=== PATIENT | female | born 1955 | race Caucasian/White ===

== ENCOUNTER 2021-08-18 07:31 | Outpatient (REF) | payer OTHER, SELFPAY ==
[2021-08-18 11:57] LABS: MANUAL DIFF FLAG NO
[2021-08-18 12:06] LABS: Basophils Percent Auto 0.6 % (0-2); Eosinophils Absolute Auto 0.5 X10*3/uL (0.0-0.4); Eosinophils Percent Auto 7.7 % (0-4); Hematocrit 45.6 % (37.0-47.0); Hemoglobin 14.6 g/dl (12.0-16.0); Imm Gran Abs Auto 0.01 X10*3/uL (0.00-0.03); Imm Gran Pct Auto 0.2 % (0.0-0.4); Lymphocytes Absolute Auto 2.4 X10*3/uL (1.2-4.9); Lymphocytes Percent Auto 35.6 % (20-40); Mean Corpuscular Hemoglobin 27.7 pg (27.0-33.0); Mean Corpuscular Volume 86.4 fL (80.0-98.0); Mean Platelet Volume 9.5 fL (9.4-12.3); Monocytes Absolute Auto 0.5 X10*3/uL (0.1-1.2); Monocytes Percent Auto 7.9 % (2-11); Neutrophils Absolute Auto 3.2 x10*3/uL (2.0-8.3); Platelet Count 325 X10*3/uL (160-400); Red Blood Count 5.28 X10*6/uL (4.20-5.50); Red Cell Distribution Width 12.7 % (11.0-16.0); White Blood Count 6.6 X10*3/uL (4.8-10.8)
[2021-08-18 12:07] LABS: Appearance Urine CLEAR; Color Urine YELLOW; Glucose Urine UA NEG (NEG); Leukocyte Esterase Urine NEG (NEG); Nitrite Urine NEG (NEG); Urine Blood NEG (NEG); Urine Ketones NEG (NEG); Urine Protein NEG (NEG-TRACE)
[2021-08-18 12:14] LABS: Alanine Aminotransferase 16 U/L (0-31); Albumin Level 3.8 g/dL (3.5-5.0); Alkaline Phosphatase 89 U/L (39-117); Anion Gap 12 (12-20); Aspartate Amino Transferase 20 U/L (5-31); Bilirubin Total 0.2 mg/dL (0.0-1.0); Blood Urea Nitrogen 21 mg/dL (9-16); Calcium 9.5 mg/dL (8.4-10.2); Carbon Dioxide 31 mmol/L (22-29); Chloride 104 mmol/L (96-108); Cholesterol 221 mg/dL; Estimated Glomerular Filt Rate > 60; Glucose Fasting 90 mg/dL (60-99); HDL Cholesterol 52 mg/dL; LDL Cholesterol Calculated 143 mg/dl; Potassium 5.5 mmol/L (3.3-5.1); Sodium 141 mmol/L (135-145); Triglycerides 131 mg/dL
[2021-08-18 12:36] LABS: TSH reflex Free T4 2.49 uIU/mL (0.32-4.0); Vitamin D 25-OH Total 63.6 ng/mL (>30)
== END 2021-08-18 07:32 | disposition home or self-care (01) ==
LOC: HO.HMGCLDS 07:31
PROVIDERS: PCP Nurse Practitioner Family; Visit Provider Nurse Practitioner Family
DX: Z00.00 Encounter for general adult medical examination without abnormal findings (principal); M85.80 Other specified disorders of bone density and structure, unspecified site; E87.5 Hyperkalemia
CPT/HCPCS: 36415; 80053; 80061; 81003; 82306; 84443; 85025

== ENCOUNTER 2021-09-22 07:27 | Outpatient (REF) | payer OTHER, SELFPAY ==
[2021-09-22 12:10] LABS: Anion Gap 11 (12-20); Carbon Dioxide 31 mmol/L (22-29); Chloride 104 mmol/L (96-108); Cholesterol 239 mg/dL; HDL Cholesterol 50 mg/dL; LDL Cholesterol Calculated 158 mg/dl; Potassium 5.5 mmol/L (3.3-5.1); Sodium 140 mmol/L (135-145); Triglycerides 159 mg/dL
== END 2021-09-22 07:28 | disposition home or self-care (01) ==
LOC: HO.HMGCLDS 07:27
PROVIDERS: Visit Provider Nurse Practitioner Family
DX: E78.5 Hyperlipidemia, unspecified (principal); E87.5 Hyperkalemia
CPT/HCPCS: 36415; 80051; 80061

== ENCOUNTER 2021-11-17 07:07 | Outpatient (REF) | payer OTHER, SELFPAY ==
[2021-11-17 11:30] LABS: Potassium 4.1 mmol/L (3.3-5.1)
== END 2021-11-17 07:08 | disposition home or self-care (01) ==
LOC: HO.HMGCLDS 07:07
PROVIDERS: PCP Nurse Practitioner Family; Visit Provider Internal Medicine
DX: E87.5 Hyperkalemia (principal)
CPT/HCPCS: 36415; 84132

== ENCOUNTER 2022-01-19 06:30 | Outpatient (REF) | payer OTHER, SELFPAY ==
[2022-01-19 12:46] LABS: MANUAL DIFF FLAG NO
[2022-01-19 12:56] LABS: Basophils Absolute Auto 0.1 X10*3/uL (0.0-0.2); Basophils Percent Auto 0.8 % (0-2); Eosinophils Absolute Auto 0.4 X10*3/uL (0.0-0.4); Eosinophils Percent Auto 6.8 % (0-4); Hemoglobin 13.7 g/dl (12.0-16.0); Imm Gran Abs Auto 0.01 X10*3/uL (0.00-0.03); Imm Gran Pct Auto 0.2 % (0.0-0.4); Lymphocytes Absolute Auto 2.4 X10*3/uL (1.2-4.9); Lymphocytes Percent Auto 38.4 % (20-40); Mean Corpuscular HGB Conc 31.1 g/dl (31.0-35.0); Mean Corpuscular Hemoglobin 26.6 pg (27.0-33.0); Mean Corpuscular Volume 85.3 fL (80.0-98.0); Mean Platelet Volume 9.8 fL (9.4-12.3); Monocytes Absolute Auto 0.5 X10*3/uL (0.1-1.2); Neutrophils Absolute Auto 2.9 x10*3/uL (2.0-8.3); Neutrophils Percent Auto 45.8 % (45-73); Platelet Count 288 X10*3/uL (160-400); Red Blood Count 5.16 X10*6/uL (4.20-5.50); Red Cell Distribution Width 13.2 % (11.0-16.0); White Blood Count 6.4 X10*3/uL (4.8-10.8)
[2022-01-19 13:09] LABS: Alanine Aminotransferase 17 U/L (0-31); Alkaline Phosphatase 72 U/L (39-117); Anion Gap 10 (12-20); Aspartate Amino Transferase 23 U/L (5-31); Bilirubin Total 0.7 mg/dL (0.0-1.0); Blood Urea Nitrogen 23 mg/dL (9-16); Calcium 9.3 mg/dL (8.4-10.2); Carbon Dioxide 28 mmol/L (22-29); Chloride 105 mmol/L (96-108); Cholesterol 226 mg/dL; Estimated Glomerular Filt Rate 56; Glucose Fasting 91 mg/dL (60-99); HDL Cholesterol 44 mg/dL; LDL Cholesterol Calculated 153 mg/dl; Potassium 4.1 mmol/L (3.3-5.1); Sodium 139 mmol/L (135-145); Triglycerides 147 mg/dL
[2022-01-19 13:28] LABS: Appearance Urine CLEAR; Color Urine YELLOW; Glucose Urine UA NEG (NEG); Leukocyte Esterase Urine NEG (NEG); Nitrite Urine NEG (NEG); PH 6.5 (5.0-8.0); Urine Blood NEG (NEG); Urine Ketones NEG (NEG); Urine Protein NEG (NEG-TRACE)
[2022-01-19 13:33] LABS: TSH reflex Free T4 1.97 uIU/mL (0.32-4.0)
[2022-01-19 13:51] LABS: Vitamin B12 876 pg/mL (200-900)
== END 2022-01-19 06:31 | disposition home or self-care (01) ==
LOC: HO.HMGCLDS 06:30
PROVIDERS: Visit Provider Nurse Practitioner Family
DX: E78.5 Hyperlipidemia, unspecified (principal); E53.8 Deficiency of other specified B group vitamins
CPT/HCPCS: 36415; 80053; 80061; 81003; 82607; 82746; 84443; 85025

== ENCOUNTER 2023-01-20 06:15 | Outpatient (REF) | payer MEDICARE, OTHER, SELFPAY ==
[2023-01-20 12:03] LABS: Alanine Aminotransferase 31 U/L (0-31); Albumin Level 3.8 g/dL (3.5-5.0); Alkaline Phosphatase 76 U/L (39-117); Anion Gap 10 (12-20); Aspartate Amino Transferase 25 U/L (5-31); Bilirubin Total 0.5 mg/dL (0.0-1.0); Blood Urea Nitrogen 19 mg/dL (9-16); Calcium 9.4 mg/dL (8.4-10.2); Carbon Dioxide 29 mmol/L (22-29); Chloride 107 mmol/L (96-108); Cholesterol 169 mg/dL; Estimated Glomerular Filt Rate > 60; Glucose Random 90 mg/dL (60-115); HDL Cholesterol 48 mg/dL; LDL Cholesterol Calculated 96 mg/dl; Potassium 3.8 mmol/L (3.3-5.1); Sodium 142 mmol/L (135-145); Total Protein 7.2 g/dL (6.5-8.0); Triglycerides 129 mg/dL
== END 2023-01-20 06:16 | disposition home or self-care (01) ==
LOC: HO.HMGCLDS 06:15
PROVIDERS: PCP Nurse Practitioner Family; Visit Provider Nurse Practitioner Family
DX: E78.5 Hyperlipidemia, unspecified (principal)
CPT/HCPCS: 36415; 80053; 80061

== ENCOUNTER 2023-03-15 09:26 | Outpatient (AMB) | payer MEDICARE, OTHER, SELFPAY ==
--- NOTE | 2023-03-15 09:35 | MHC.PC.OV ---
Vital Signs 03/15/23 09:36 Height 5 ft 5 in Weight 149 lb 4 oz BMI 24.8 BP 110/68 Blood Pressure Location Rt brachial Position Sitting Pulse 81 Pulse Source Pulse Oximeter Pulse Oximetry (%) 97 Oxygen Delivery Method Room Air Intake Visit Reasons: 6 month f/u Allergies Sulfa (Sulfonamide Antibiotics) Allergy (Unknown, Verified 03/15/23 09:37) high fevers, rash Medication List - Last Reconciled 03/15/23 by NAREN Westbrook atorvastatin 10 mg PO DAILY cholecalciferol (vitamin D3) 125 mcg PO DAILY epcaniiy-hqxoge-czxvberv acid 500 mg-800 mcg- 50 mg (Collagen 1500 Plus C) caps PO cyanocobalamin (vitamin B-12) 1,000 mcg PO DAILY estradiol 0.01%(0.1mg/gram) 1 g vaginal ijragwmb-kte-qphe-FA-vit K-lut 8 mg iron-400 mcg-50 mcg (Centrum Silver Women) 1 tab PO DAILY psyllium husk (Metamucil) 1 tbsp PO BID Tobacco use date assessed: 03/15/23 Fall risk assessment: No Falls in past year Last assessed Fall Risk: 03/15/23 Dental Screening Dental Screen Date: 03/15/23 Did you have a dental visit in the last 12 months?: Yes Did you have a dental problem in the last 6 months where you did not have access to dental care?: No Was dental information given to patient?: Patient has dentist HPI 6 month f/u HPI Details Dyslipidemia: On atorvastatin 10mg. Cholesterol is looking much better. Will order labs. Hx of vitamin B12 deficiency, will order labs. Hx of osteopenia, will order bone density and check vitamin D. Denies chest pain, shortness of breath, and dizziness. Pt will call about her mammogram and colon screen. [facility], [facility] Surgical History History of partial hysterectomy Social History Housing: House Patient Tobacco Use Status: Former Tobacco user Years Smoked: quit 38 years e-Cigarette/Vaping Use: Never Used Second Hand Smoke Exposure: No service: No Current occupational status: retired Cognitive needs: No Hearing needs: No Vision needs: No Questionnaire Thrive Questionnaire Date Thrive assessed: 08/11/21 NEL-7 AMB Questionnaire NEL-7 Date NEL - 7 assessed: 08/11/21 Source: Developed by Drs. Musa Javed, Amalia Vaughan, Dipak Richey and colleagues, with an educational yudith from [employer]. Review of Systems Const Reports as per HPI Physical exam (Primary Care) Vital Signs: Last Vital Signs Pulse 81 03/15/23 09:36 BP 110/68 03/15/23 09:36 Pulse Ox 97 03/15/23 09:36 Oxygen Delivery Method Room Air 03/15/23 09:36 BMI result Body Mass Index 24.8 Tobacco/Smoking Status: Tobacco use Status Tobacco use date assessed 03/15/23 03/15/23 09:41 Patient Tobacco Use Status Former Tobacco user 03/15/23 09:35 e-Cigarette/Vaping Use Never Used 03/15/23 09:35 Thrive Assessment: Date of Thrive Assessment Date Thrive assessed 08/11/21 03/15/23 09:35 Const General: cooperative Orientation/consciousness: patient oriented x3 Resp Effort & Inspection: normal respiratory effort Auscultation: clear to auscultation bilaterally Cardio Rate: regular rate Rhythm: regular rhythm Heart sounds: S1 normal heart sound present and S2 normal heart sound present Neuro General: patient oriented x3 Psych Appearance: grossly normal Mental Status: mental status grossly normal Speech and movement: Normal speech and movement present Affect: normal affect Attitude: cooperative Thought process: Normal thought process present Thought content: Normal thought content present Insight: Good insight present (Psych) Judgement: Good judgement present (Psych) Assessment and Plan Assessment & Plan (1) Osteopenia: Code(s): M85.80 - Other specified disorders of bone density and structure, unspecified site Plan: Bone density ordered (2) Dyslipidemia: Code(s): E78.5 - Hyperlipidemia, unspecified Plan: Labs ordered (3) B12 deficiency: Code(s): E53.8 - Deficiency of other specified B group vitamins Plan: Labs ordered Plan The patient agreed to the use of a manager medical affairs for this encounter. Scribed for NAREN Sharp by Radha Martino manager medical affairs, on 03/15/2023 at 09:50 EST. Orders: Orders XR DEXA axial skeleton Today M85.80 - Other specified disorders of bone density and structure, unspecified site Comprehensive Epworth. Panel Fast Today E78.5 - Hyperlipidemia, unspecified Lipid Panel Today E78.5 - Hyperlipidemia, unspecified TSH reflex Free T4 Today E78.5 - Hyperlipidemia, unspecified Complete Blood Count Auto Diff Today E78.5 - Hyperlipidemia, unspecified UA CC w/rflx Micro + Cult Today E78.5 - Hyperlipidemia, unspecified Vitamin B12 and Folate Today E53.8 - Deficiency of other specified B group vitamins Vitamin D 25-OH Total Today M85.80 - Other specified disorders of bone density and structure, unspecified site Coding Level of Care Code Est Pt Level 3 (57716) Diagnoses Osteopenia M85.80 Dyslipidemia E78.5 B12 deficiency E53.8
[2023-03-15 09:36] VITALS: BP 110/68; PULSE 81; O2SAT 97; BMI 24.8
== END 2023-03-15 09:55 | disposition home or self-care (01) ==
PROVIDERS: Visit Provider Nurse Practitioner Family
DX: M85.80 Other specified disorders of bone density and structure, unspecified site (principal); E78.5 Hyperlipidemia, unspecified; E53.8 Deficiency of other specified B group vitamins
CPT/HCPCS: 99213

== ENCOUNTER 2023-03-26 09:06 | Outpatient (REF) | payer MEDICARE, OTHER, SELFPAY ==
--- NOTE | ~2023-03-26 | MM_ITS ---
EXAMINATION: BONE DENSITOMETRY CLINICAL INDICATION: Osteopenia. COMPARISON: This is the patient's baseline examination. TECHNIQUE: Using a [employer] DXA System (software version: 13.1) manufactured by [employer], dual-energy x-ray absorptiometry was performed of the lumbar spine and left hip. The images are of good technical quality. Summary results are attached. FINDINGS: LEFT FEMUR, NECK: BMD 0.752 g/cm2, Z-score -0.6, T-score -2.1, osteopenia. LEFT FEMUR, TOTAL: BMD 0.766 g/cm2, Z-score -0.8, T-score -1.9, osteopenia. AP SPINE L1-L4: BMD 0.869 g/cm2, Z-score -1.1, T-score -2.6, osteoporosis. IDENTIFIED RISK FACTORS: Menopause, hysterectomy. HISTORY OF FRACTURE: None listed. MEDICATIONS: Calcium or multivitamin. Vitamin D. MM/XR DEXA axial skeleton IMPRESSION: 1. DIAGNOSIS: Osteoporosis based on the lowest T-score value of -2.6 in the lumbar spine applying World Health Organization criteria. 2. 10-YEAR FRACTURE RISK PREDICTION, FRAX: According to the guidelines, FRAX calculation should only be performed on patients in the osteopenia bone density category. Therefore, FRAX was not performed on this patient. 3. Treatment Recommendations: NOF guidelines recommend consideration for treatment in postmenopausal women and men age 50 and older presenting with the following: -A hip or vertebral (clinical or morphometric) fracture. -T-score less than or equal to -2.5 at the femoral neck or spine after appropriate evaluation to exclude secondary causes. -Low bone mass at the hip or spine and a 10-year fracture probability by FRAX of greater than or equal to 3% for hip fracture or greater than or equal to 20% for major osteoporotic fracture based on the [place] adapted WHO algorithm. 4. Other Recommendations: All treatment decisions require clinical judgment and consideration of individual patient factors, including patient preferences, comorbidities, previous drug use, risk factors not captured in the FRAX model (e.g. frailty, falls, vitamin D deficiency, increased bone turnover, interval significant decline in bone density) and possible under or overestimation of fracture risk by FRAX. Additional medical evaluation for secondary cause of low bone mineral density may be appropriate. FUTURE SCAN RECOMMENDATION: People with diagnosed cases of osteoporosis or at high risk for fracture should have regular bone mineral density tests. For patients eligible for Medicare, routine testing is allowed once every 2 years. The testing frequency can be increased to one year for patients who have rapidly progressing disease, those who are receiving or discontinuing medical therapy to restore bone mass, or have additional risk factors.
== END 2023-03-26 09:07 | disposition home or self-care (01) ==
LOC: HO.MAMMO 09:06
PROVIDERS: PCP Nurse Practitioner Family; Visit Provider Nurse Practitioner Family
DX: Z13.820 Encounter for screening for osteoporosis (principal); Z78.0 Asymptomatic menopausal state; M85.80 Other specified disorders of bone density and structure, unspecified site
CPT/HCPCS: 77080

== ENCOUNTER → 2023-03-26 09:15 | Outpatient (BNV) | payer MEDICARE, OTHER, SELFPAY | PROVIDERS: PCP Nurse Practitioner Family; Visit Provider Radiology Diagnostic Radiology | DX: M81.0 Age-related osteoporosis without current pathological fracture (principal); M85.89 Other specified disorders of bone density and structure, multiple sites | CPT/HCPCS: 77080 ==

== ENCOUNTER 2023-09-11 06:43 | Outpatient (REF) | payer MEDICARE, OTHER, SELFPAY ==
[2023-09-11 11:35] LABS: MANUAL DIFF FLAG NO
[2023-09-11 11:39] LABS: Basophils Percent Auto 0.7 % (0-2); Eosinophils Absolute Auto 0.4 X10*3/uL (0.0-0.4); Eosinophils Percent Auto 6.4 % (0-4); Hematocrit 45.5 % (37.0-47.0); Hemoglobin 14.8 g/dl (12.0-16.0); Imm Gran Abs Auto 0.02 X10*3/uL (0.00-0.03); Imm Gran Pct Auto 0.4 % (0.0-0.4); Lymphocytes Absolute Auto 1.8 X10*3/uL (1.2-4.9); Lymphocytes Percent Auto 31.1 % (20-40); Mean Corpuscular HGB Conc 32.5 g/dl (31.0-35.0); Mean Corpuscular Hemoglobin 26.6 pg (27.0-33.0); Mean Corpuscular Volume 81.7 fL (80.0-98.0); Mean Platelet Volume 9.6 fL (9.4-12.3); Monocytes Absolute Auto 0.5 X10*3/uL (0.1-1.2); Monocytes Percent Auto 8.7 % (2-11); Neutrophils Percent Auto 52.7 % (45-73); Platelet Count 324 X10*3/uL (160-400); Red Blood Count 5.57 X10*6/uL (4.20-5.50); Red Cell Distribution Width 12.9 % (11.0-16.0); White Blood Count 5.6 X10*3/uL (4.8-10.8)
[2023-09-11 12:03] LABS: Appearance Urine Clear; Color Urine Yellow; Glucose Urine UA Negative (Negative); Leukocyte Esterase Urine Negative (Negative); Nitrite Urine Negative (Negative); PH 7.5 (5.0-9.0); Urine Blood Negative (Negative); Urine Ketones Negative (Negative); Urine Protein Negative (Neg-Trace)
[2023-09-11 12:15] LABS: Alanine Aminotransferase 22 U/L (0-31); Albumin Level 3.9 g/dL (3.5-5.0); Alkaline Phosphatase 80 U/L (39-117); Anion Gap 12 (12-20); Aspartate Amino Transferase 22 U/L (5-31); Bilirubin Total 0.4 mg/dL (0.0-1.0); Blood Urea Nitrogen 26 mg/dL (9-16); Calcium 9.7 mg/dL (8.4-10.2); Carbon Dioxide 28 mmol/L (22-29); Chloride 104 mmol/L (96-108); Cholesterol 159 mg/dL (<200); Estimated Glomerular Filt Rate > 60; Glucose Fasting 87 mg/dL (60-99); HDL Cholesterol 44 mg/dL (>40); LDL Cholesterol Calculated 95 mg/dL (<100); Sodium 139 mmol/L (135-145); Total Protein 7.4 g/dL (6.5-8.0); Triglycerides 101 mg/dL (<150)
[2023-09-11 12:31] LABS: TSH reflex Free T4 1.74 uIU/mL (0.32-4.0); Vitamin D 25-OH Total 61.4 ng/mL (>30)
[2023-09-11 12:38] LABS: Folate 15.1 ng/mL (> or = 4.0); Vitamin B12 1408 pg/mL (200-900)
== END 2023-09-11 06:44 | disposition home or self-care (01) ==
LOC: HO.HMGCLDS 06:43
PROVIDERS: PCP Nurse Practitioner Family; Visit Provider Nurse Practitioner Family
DX: E78.5 Hyperlipidemia, unspecified (principal); M85.80 Other specified disorders of bone density and structure, unspecified site; E53.8 Deficiency of other specified B group vitamins
CPT/HCPCS: 36415; 80053; 80061; 81003; 82306; 82607; 82746; 84443; 85025

== ENCOUNTER 2023-09-13 09:37 | Outpatient (AMB) | payer MEDICARE, OTHER, SELFPAY ==
--- NOTE | 2023-09-13 09:41 | A.OFFPC_ITS ---
Vital Signs 09/13/23 09:42 Height 5 ft 5 in Weight 151 lb 8 oz BMI 25.2 BP 120/72 Blood Pressure Location Lt brachial Position Sitting Pulse 105 H Pulse Source Pulse Oximeter Pulse Oximetry (%) 95 Oxygen Delivery Method Room Air Intake Visit Reasons: 6 month f/u Intake Note: Pt is here to follow up for her Lipids Allergies Sulfa (Sulfonamide Antibiotics) Allergy (Unknown, Verified 09/13/23 09:45) high fevers, rash Medication List - Last Reconciled 09/13/23 by NAREN Westbrook alendronate 70 mg PO QWEEK 90 days atorvastatin 10 mg PO DAILY cholecalciferol (vitamin D3) 125 mcg PO DAILY cbiwyptr-dfpvwr-pqmbfpoa acid 500 mg-800 mcg- 50 mg (Collagen 1500 Plus C) caps PO cyanocobalamin (vitamin B-12) 1,000 mcg PO DAILY estradiol 0.01%(0.1mg/gram) 1 g vaginal magnesium 250 mg PO DAILY kwcdetst-lrj-icwv-FA-vit K-lut 8 mg iron-400 mcg-50 mcg (Centrum Silver Women) 1 tab PO DAILY psyllium husk (Metamucil) 1 tbsp PO BID Tobacco use date assessed: 09/13/23 Fall risk assessment: No Falls in past year Last assessed Fall Risk: 09/13/23 Dental Screening Dental Screen Date: 09/13/23 Did you have a dental visit in the last 12 months?: Yes Did you have a dental problem in the last 6 months where you did not have access to dental care?: No Was dental information given to patient?: Patient has dentist HPI 6 month f/u HPI Details Pt c/o right shoulder pain. She reports that this has been present since July. Pt states that there was no one event that caused this. She reports intermittent popping. Will order XR and refer to ortho. Denies fever, chills, and dizziness. Due for colon screen, will refer to GI. RBBB noted on EKG. Pt is completely asymptomatic. [facility] Surgical History History of partial hysterectomy Social History Housing: House Patient Tobacco Use Status: Former Tobacco user Years Smoked: quit 38 years e-Cigarette/Vaping Use: Never Used Second Hand Smoke Exposure: No service: No Current occupational status: retired Cognitive needs: No Hearing needs: No Vision needs: No Questionnaire PHQ-9 Over the last 2 weeks, how often have you been bothered by any of the following problems? 1. Little interest or pleasure in doing things: not at all 2. Feeling down, depressed, or hopeless: not at all 3. Trouble falling or staying asleep, or sleeping too much: not at all 4. Feeling tired or having little energy: not at all 5. Poor appetite or overeating: not at all 6. Feeling bad about yourself - or that you are a failure or have let yourself or your family down: not at all 7. Trouble concentrating on things, such as reading the newspaper or watching television: not at all 8. Moving or speaking so slowly that other people could have noticed. Or the opposite - being so fidgety or restless that you have been moving around a lot more than usual: not at all 9. Thoughts that you would be better off or of hurting yourself in some way: not at all Total score: 0 Source: Developed by Drs. Musa Javed, Amalia Vaughan, Dipak Richey and colleagues, with an educational yudith from [employer]. Thrive Questionnaire Date Thrive assessed: 09/13/23 I am a: Patient What is your living situation today?: I have a steady place to live Within the past 12 months, did the food you bought not last and you didn't have the money to get more?: Never true Within the past 12 months, did you worry whether your food would run out before you got money to buy more?: Never true Do you have trouble paying for medicines?: No Do you have trouble getting transportation to medical appointments?: No Do you have trouble paying your heating and electricity bill?: No Do you have trouble taking care of your child, family member or friend?: No Do you have trouble with day-to-day activities such as bathing, preparing meals, shopping, managing finances, etc.?: No Are you currently unemployed and looking for a job?: No Are you interested in more education?: No THRIVE Score: 0 AUDIT C Alcohol Use Questionnaire (AUDIT-C) 1. How often do you have a drink containing alcohol?: Monthly or less 2. How many drinks containing alcohol do you have on a typical day when you are drinking?: 1 or 2 3. How often do you have six or more drinks on one occasion?: Never Total Score: 1 NEL-7 AMB Questionnaire NEL-7 Date NEL - 7 assessed: 09/13/23 Feeling nervous, anxious, or on edge: 0 = Not at all Not being able to stop or control worryin = Not at all Worrying too much about different things: 0 = Not at all Trouble relaxin = Not at all Being so restless that it is hard to sit still: 0 = Not at all Becoming easily annoyed or irritable: 0 = Not at all Feeling afraid as if something awful might happen: 0 = Not at all Total NEL-7 score (0-4 normal; 5-9 mild; 10-14 moderate; 15-21 severe): 0 Source: Developed by Drs. Musa Javed, Amalia Vaughan, Dipak Richey and colleagues, with an educational yudith from [employer]. Review of Systems Const Reports as per HPI Physical exam (Primary Care) Vital Signs: Last Vital Signs Pulse 105 H 09/13/23 09:42 BP 120/72 09/13/23 09:42 Pulse Ox 95 09/13/23 09:42 Oxygen Delivery Method Room Air 09/13/23 09:42 BMI result Body Mass Index 25.2 Tobacco/Smoking Status: Tobacco use Status Tobacco use date assessed 09/13/23 09/13/23 09:49 Patient Tobacco Use Status Former Tobacco user 09/13/23 09:42 e-Cigarette/Vaping Use Never Used 09/13/23 09:42 PHQ-9: PHQ-9 Score PHQ-9: Total score 0 09/13/23 10:34 Thrive Assessment: Date of Thrive Assessment Date Thrive assessed 09/13/23 09/13/23 10:34 Const General: cooperative Orientation/consciousness: patient oriented x3 Resp Effort & Inspection: normal respiratory effort Auscultation: clear to auscultation bilaterally Cardio Other: slight pause noted Heart sounds: S1 normal heart sound present and S2 normal heart sound present Neuro General: patient oriented x3 Extrem Other: difficulty lifting right arm above 30-40 degrees Right lower extremity: no edema Left lower extremity: no edema Psych Appearance: grossly normal Mental Status: mental status grossly normal Speech and movement: Normal speech and movement present Affect: normal affect Attitude: cooperative Thought process: Normal thought process present Thought content: Normal thought content present Insight: Good insight present (Psych) Judgement: Good judgement present (Psych) Assessment and Plan Assessment & Plan (1) Screening for colon cancer: Code(s): Z12.11 - Encounter for screening for malignant neoplasm of colon Plan: Referred to GI (2) Right shoulder pain: Code(s): M25.511 - Pain in right shoulder Plan: XR ordered, referred to GI (3) Sinus pause: Code(s): I45.5 - Other specified heart block Plan The patient agreed to the use of a director medical affairs for this encounter. Scribed for NARNE Sharp by Rdaha Martino director medical affairs, on 09/13/2023 at 09:55 EST. Orders: Orders XR shoulder RT min 2V Today M25.511 - Pain in right shoulder AMB EKG-In Office Today I45.5 - Other specified heart block Referrals Gastroenterology Referral Z12.11 - Encounter for screening for malignant neoplasm of colon Orthopedics Referral M25.511 - Pain in right shoulder Coding Level of Care Code Est Pt Level 3 (63945) Diagnoses Screening for colon cancer Z12. Right shoulder pain M25.511 Sinus pause I45.5
[2023-09-13 09:42] VITALS: BP 120/72; PULSE 105; O2SAT 95; BMI 25.2
== END 2023-09-13 11:07 | disposition home or self-care (01) ==
PROVIDERS: PCP Nurse Practitioner Family; Visit Provider Nurse Practitioner Family
DX: Z12.11 Encounter for screening for malignant neoplasm of colon (principal); M25.511 Pain in right shoulder; I45.5 Other specified heart block
CPT/HCPCS: 99213

== ENCOUNTER 2023-09-13 10:56 | Outpatient (REF) | payer MEDICARE, OTHER, SELFPAY ==
--- NOTE | ~2023-09-13 | XR_ITS ---
EXAMINATION: XR SHOULDER, RIGHT CLINICAL INFORMATION: Right shoulder pain COMPARISON: None available. TECHNIQUE: AP external rotation, Grashey, scapular Y, and axillary views of the right shoulder. FINDINGS: BONES: Bony structures are intact. There is no focal bone destruction or periosteal reaction seen. JOINTS: Alignment of joints is normal. SOFT TISSUE: Soft tissue is normal. No radiopaque foreign body or abnormal air collection is seen. XR/XR shoulder RT min 2V IMPRESSION: 1. Normal x-rays of right shoulder. No fracture or dislocation or signs of osteomyelitis are found.
== END 2023-09-13 10:57 | disposition home or self-care (01) ==
LOC: HO.HMGCX 10:56
PROVIDERS: PCP Nurse Practitioner Family; Visit Provider Nurse Practitioner Family
DX: M25.511 Pain in right shoulder (principal)
CPT/HCPCS: 73030

== ENCOUNTER 2023-10-05 09:49 | Outpatient (AMB) | payer MEDICARE, OTHER, SELFPAY ==
[2023-10-05 10:00] VITALS: BMI 25.1
--- NOTE | 2023-10-05 10:00 | MHC.OFFVIS ---
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 The patient states that her symptoms have gotten worse over the last 6 months in spite of continued non operative treatments. She thinks that she may have injured her shoulder while lifting her granddaughter. She does report difficulty lifting her right hand above shoulder height. She has done physical therapy exercises which aggravated her pain. She has also tried Tylenol and anti-inflammatory medicines which gave her minimal. Allergies Sulfa (Sulfonamide Antibiotics) Allergy (Unknown, Verified 10/05/23 10:08) high fevers, rash Medication List - Last Reconciled 10/05/23 by Abner Yi MD alendronate 70 mg PO QWEEK 90 days atorvastatin 10 mg PO DAILY cholecalciferol (vitamin D3) 125 mcg PO DAILY lmzyteyx-wxnopp-pcssahty acid 500 mg-800 mcg- 50 mg (Collagen 1500 Plus C) caps PO cyanocobalamin (vitamin B-12) 1,000 mcg PO DAILY estradiol 0.01%(0.1mg/gram) 1 g vaginal magnesium 250 mg PO DAILY prdzeupi-rsw-kpul-FA-vit K-lut 8 mg iron-400 mcg-50 mcg (Centrum Silver Women) 1 tab PO DAILY psyllium husk (Metamucil) 1 tbsp PO BID PFSH Surgical History (Updated 10/05/23 @ 10:12 by Ashlyn Rodrigues CMA) History of surgery on right wrist History of partial hysterectomy Social History Housing: House Patient Tobacco Use Status: Former Tobacco user Years Smoked: quit 38 years e-Cigarette/Vaping Use: Never Used Second Hand Smoke Exposure: No service: No Current occupational status: retired Cognitive needs: No Hearing needs: No Vision needs: No Physical Exam Vital Signs: BMI result Body Mass Index 25.1 Const Other: Well-nourished well-developed very friendly female awake alert and oriented x3 in no acute distress Extrem Other: Bilateral upper extremity examination shows good capillary refill, no skin lesions noted, normal sensation light touch Right shoulder examination shows decreased active and passive range of motion when compared to her left shoulder, positive impingement signs, 4+ out of 5 strength with supraspinatus testing, tenderness over her acromioclavicular joint, no instability Results Reviewed Results Reviewed: X-rays of the patient's right shoulder show severe acromioclavicular joint narrowing, a type 2 acromion, no acute bony abnormalities Assessment & Plan Assessment & Plan (1) Right shoulder pain: Code(s): M25.511 - Pain in right shoulder Plan Ms. Linder presents with right shoulder pain and weakness due to impingement syndrome and possible rotator cuff tearing. Thus, I will send the patient for an MRI of her right shoulder to further evaluate the status of her rotator cuff tendons. If she does have a full-thickness tear I will recommend surgical repair to optimize her future functional level. She will continue with the range of motion exercises in the meantime. I will see her back once the MRI is completed. Feel free to call me at any time should questions regarding her orthopedic management arise. Thank you very much for asking me to see this very friendly patient. I spent 22 minutes in reviewing the patient's records and imaging studies, seeing the patient and documenting in the medical record. Orders: Orders MR shoulder RT wo con 10/05/23 M75.101 - Unspecified rotator cuff tear or rupture of right shoulder, not specified as traumatic Coding Level of Care Code New Pt Level 2 (92599) Diagnoses Right shoulder pain M25.511
== END 2023-10-05 10:45 | disposition home or self-care (01) ==
PROVIDERS: PCP Nurse Practitioner Family; Visit Provider Orthopaedic Surgery
DX: M25.511 Pain in right shoulder (principal)
CPT/HCPCS: 99202

== ENCOUNTER → 2023-10-05 09:49 | Outpatient (BNVA) | payer MEDICARE, OTHER, SELFPAY | PROVIDERS: PCP Nurse Practitioner Family; Visit Provider Orthopaedic Surgery | DX: M25.511 Pain in right shoulder (principal) | CPT/HCPCS: 99202 ==

== ENCOUNTER 2023-10-28 14:20 | Outpatient (AMB) | payer MEDICARE, OTHER, SELFPAY ==
[2023-10-28 14:35] VITALS: BMI 25.1
--- NOTE | 2023-10-28 14:35 | A.OFFVIS_ITS ---
Intake Vital Signs 10/28/23 14:35 Height 5 ft 5 in Weight 151 lb BMI 25.1 Intake Visit Reasons: OV - Right Shoulder MRI Review Intake Note: Laverne is a 68 year old female who presents with progressively worsening Right shoulder pain and weakness. The patient states that her symptoms have gotten worse over the last 9 months in spite of continued non operative treatments. She thinks that she may have injured her shoulder while lifting her granddaughter. She does report difficulty lifting her right hand above shoulder height. She has done physical therapy exercises which aggravated her pain. She has also tried Tylenol and anti-inflammatory medicines which gave her minimal. Allergies Sulfa (Sulfonamide Antibiotics) Allergy (Unknown, Verified 10/28/23 14:39) high fevers, rash Medication List - Last Reconciled 10/29/23 by Abner Yi MD alendronate 70 mg PO QWEEK 90 days atorvastatin 10 mg PO DAILY cholecalciferol (vitamin D3) 125 mcg PO DAILY ndclfksn-tqleag-leuqmmxs acid 500 mg-800 mcg- 50 mg (Collagen 1500 Plus C) caps PO cyanocobalamin (vitamin B-12) 1,000 mcg PO DAILY estradiol 0.01%(0.1mg/gram) 1 g vaginal magnesium 250 mg PO DAILY tlauffdz-ihk-kpql-FA-vit K-lut 8 mg iron-400 mcg-50 mcg (Centrum Silver Women) 1 tab PO DAILY psyllium husk (Metamucil) 1 tbsp PO BID PFSH Surgical History (Updated 10/05/23 @ 10:12 by Ashlyn Rodrigues CMA) History of surgery on right wrist History of partial hysterectomy Social History (Updated 10/28/23 @ 14:40 by Ashlyn Rodrigues CMA) Housing: House Patient Tobacco Use Status: Former Tobacco user Years Smoked: quit 38 years e-Cigarette/Vaping Use: Never Used Second Hand Smoke Exposure: No service: No Current occupational status: retired Current occupation: Right hand dominate Cognitive needs: No Hearing needs: No Vision needs: No Physical Exam Vital Signs: BMI result Body Mass Index 25.1 Const Other: Well-nourished well-developed very friendly female awake alert and oriented x3 in no acute distress Extrem Other: Bilateral upper extremity examination shows good capillary refill, no skin lesions noted, normal sensation light touch Right shoulder examination shows decreased active range of motion but almost full passive range of motion when compared to her left shoulder, 4/5 strength with supraspinatus testing, positive impingement signs, tenderness over her acromioclavicular joint, no instability Results Reviewed Results Reviewed: MRI of the patient's right shoulder show severe acromioclavicular joint narrowing, a type 2 acromion, a small full-thickness tear of the supraspinatus tendon Assessment & Plan Assessment & Plan (1) Right shoulder pain: Code(s): M25.511 - Pain in right shoulder Plan Ms. Linder presents with progressively worsening right shoulder pain and w eakness due to impingement syndrome, acromioclavicular joint arthritis and a full-thickness rotator cuff tear. I had a lengthy discussion with the patient regarding the treatment options. At this point she has failed continued non operative treatments. The risks and benefits of right shoulder surgery were discussed at length with the patient. The patient wishes to proceed with surgery. Surgery will most likely involve right shoulder diagnostic arthroscopy with distal clavicle excision, acromioplasty and rotator cuff repair. The patient will be scheduled for next available date. She will follow-up as instructed. Feel free to call me at any time should questions regarding her orthopedic management arise. I spent 22 minutes in reviewing the patient's records and imaging studies, clara gloria the patient and documenting in the medical record. Coding Level of Care Code Est Pt Level 2 (04064) Diagnoses Right shoulder pain M25.511
== END 2023-10-28 15:01 | disposition home or self-care (01) ==
PROVIDERS: PCP Nurse Practitioner Family; Visit Provider Orthopaedic Surgery
DX: M25.511 Pain in right shoulder (principal)
CPT/HCPCS: 99213

== ENCOUNTER → 2023-10-28 14:20 | Outpatient (BNVA) | payer MEDICARE, OTHER, SELFPAY | PROVIDERS: PCP Nurse Practitioner Family; Visit Provider Orthopaedic Surgery | DX: M25.511 Pain in right shoulder (principal) | CPT/HCPCS: 99212 ==

== ENCOUNTER 2023-12-16 09:59 | Outpatient (AMB) | payer MEDICARE, OTHER, SELFPAY ==
[2023-12-16 10:07] VITALS: BMI 25.1
--- NOTE | 2023-12-16 10:07 | MHC.OFFVIS ---
Vital Signs 12/16/23 10:07 Height 5 ft 5 in Weight 151 lb BMI 25.1 Intake Visit Reasons: Preop RT Shoulder 12/24/23 Intake Note: Laverne is a 68 year old female who presents with Right shoulder pain and weakness. The patient states that her symptoms have gotten worse over the last 6 months in spite of continued non operative treatments. She thinks that she may have injured her shoulder while lifting her granddaughter. She does report difficulty lifting her right hand above shoulder height. She has done physical therapy exercises which aggravated her pain. She has also tried Tylenol and anti-inflammatory medicines which gave her minimal. Allergies Sulfa (Sulfonamide Antibiotics) Allergy (Unknown, Verified 12/16/23 10:11) high fevers, rash Medication List - Last Reconciled 12/16/23 by Abner Yi MD alendronate 70 mg PO QWEEK 90 days atorvastatin 10 mg PO DAILY cholecalciferol (vitamin D3) 125 mcg PO DAILY lueaytqc-ebiwdh-ayoaoatg acid 500 mg-800 mcg- 50 mg (Collagen 1500 Plus C) caps PO cyanocobalamin (vitamin B-12) 1,000 mcg PO DAILY estradiol 0.01%(0.1mg/gram) 1 g vaginal magnesium 250 mg PO DAILY vulhhhgx-vbj-uprn-FA-vit K-lut 8 mg iron-400 mcg-50 mcg (Centrum Silver Women) 1 tab PO DAILY psyllium husk (Metamucil) 1 tbsp PO BID PFSH Surgical History History of surgery on right wrist History of partial hysterectomy Social History Housing: House Patient Tobacco Use Status: Former Tobacco user Years Smoked: quit 38 years e-Cigarette/Vaping Use: Never Used Second Hand Smoke Exposure: No service: No Current occupational status: retired Current occupation: Right hand dominate Cognitive needs: No Hearing needs: No Vision needs: No Physical Exam Vital Signs: BMI result Body Mass Index 25.1 Const Other: Well-nourished well-developed very friendly female awake alert and oriented x3 in no acute distress Extrem Other: Bilateral upper extremity examination shows good capillary refill, no skin lesions noted, normal sensation light touch Right shoulder examination shows decreased range of motion when compared to her left shoulder, 4/5 strength with supraspinatus testing, positive impingement signs, tenderness over her acromioclavicular joint, no instability Results Reviewed Results Reviewed: MRI of the patient's right shoulder show severe acromioclavicular joint narrowing, a type 2 acromion, a full-thickness supraspinatus tendon tear Assessment & Plan Assessment & Plan (1) Right shoulder pain: Code(s): M25.511 - Pain in right shoulder Category: Medical Plan Ms. Linder presents with progressively worsening right shoulder pain and weakness due to impingement syndrome, acromioclavicular joint arthritis and a full-thickness rotator cuff tear. I had a lengthy discussion with the patient regarding the treatment options. At this point she has failed continued non operative treatments. The risks and benefits of right shoulder surgery were discussed at length with the patient. The patient wishes to proceed with surgery. Surgery will involve right shoulder diagnostic arthroscopy with distal clavicle excision, acromioplasty, and rotator cuff repair. The patient was given a prescription for Percocet at her preoperative appointment. She will follow-up as instructed. Feel free to call me at any time should questions regarding her orthopedic management arise. I spent 20 minutes in reviewing the patient's records and imaging studies, seeing the patient and documenting in the medical record. Medications: New oxycodone-acetaminophen 5-325 mg (Percocet) Partial Fill upon patient request. Take 1-2 tabs every 4 hours as needed for pain following your right shoulder surgery. 2 tabs PO Q4H 1 week PRN 40 tabs 0RF pain Coding Level of Care Code Est Pt Level 3 (83561) Diagnoses Right shoulder pain M25.511
== END 2023-12-16 10:41 | disposition home or self-care (01) ==
PROVIDERS: PCP Nurse Practitioner Family; Visit Provider Orthopaedic Surgery
DX: M25.511 Pain in right shoulder (principal)
CPT/HCPCS: 99213

== ENCOUNTER → 2023-12-16 09:59 | Outpatient (BNVA) | payer MEDICARE, OTHER, SELFPAY | PROVIDERS: PCP Nurse Practitioner Family; Visit Provider Orthopaedic Surgery | DX: M75.41 Impingement syndrome of right shoulder (principal); M19.011 Primary osteoarthritis, right shoulder; M75.121 Complete rotator cuff tear or rupture of right shoulder, not specified as traumatic | CPT/HCPCS: 99212 ==

== ENCOUNTER 2023-12-24 08:55 | Day surgery (SDC) | payer MEDICARE, OTHER, SELFPAY ==
[2023-12-22 10:36] VITALS: BMI 25.1
--- NOTE | 2023-12-22 13:40 | P.CONAN_ITS ---
Documented by User: Estefani Cisse NP 12/22/23 13:44 HPI - Anesthesia Eval Consult details Narrative: 68yo F for Right Shoulder Arthroscopy distal clavicle excision, acromioplasty, and rotator repair PMFSH Active Problems Active Problems: All Active Problems Sinus pause (Acute) Right shoulder pain (Acute) Screening for colon cancer (Acute) Cerumen impaction (Acute) B12 deficiency (Acute) Dyslipidemia (Acute) Hyperkalemia (Acute) Osteopenia (Acute) Physical exam (Acute) Fibroid tumor (Acute) Past Medical History Medical History RBBB (right bundle branch block) Osteopenia Dyslipidemia Surgical History Surgical History [place] teeth removed History of surgery on right wrist History of partial hysterectomy Social History Social History Housing: House Patient Tobacco Use Status: Former Tobacco user Quit Date: 2003 Tobacco use type: Cigarette Years Smoked: 15 Smoked in Last 30 Days: No e-Cigarette/Vaping Use: Never Used Second Hand Smoke Exposure: No Use of substances other than those prescribed or required for medical reasons: No Are you DNR?: No Advance Directives: No Advance Directives Information Provided: Yes service: No Current occupational status: retired Current occupation: Right hand dominate Cognitive needs: No Hearing needs: No Vision needs: No Meds Allergies Allergy/AdvReac Type Severity Reaction Status Date / Time Sulfa (Sulfonamide Allergy Severe high Verified 12/24/23 09:11 Antibiotics) fevers, rash, chills Active Medications: Current Medications Cefazolin Sodium/Dextrose (Ancef) 2 gm in 50 mls @ 100 mls/hr IV PREOP ONE Stop: 12/24/23 06:19 Home Medications ?Medication ?Instructions ?Recorded ?Confirmed ?Last Taken ?Type cholecalciferol (vitamin D3) 125 125 mcg PO DAILY 08/11/21 12/22/23 Unknown History mcg (5,000 unit) capsule bunpsemc-cfhn-ylhd 8 mg-folic 400 1 tab PO DAILY 08/11/21 12/22/23 Unknown History mcg-K 50 mcg-lutein 300 mcg tablet (Centrum Silver Women) cyanocobalamin (vitamin B-12) 1,000 mcg PO DAILY 01/12/22 12/22/23 Unknown History 1,000 mcg tablet estradiol 0.01% (0.1 mg/gram) 1 g vaginal 3XW 01/12/22 12/22/23 Unknown History vaginal cream collagen,hydrolysate 500 mg-biotin 1 cap PO DAILY 09/14/22 12/22/23 Unknown History 800 mcg-ascorbic acid 50 mg capsule (Collagen 1500 Plus C) psyllium husk 3.4 gram/5.4 gram 1 tbsp PO BID 03/15/23 12/22/23 Unknown History oral powder (Metamucil) magnesium 250 mg tablet 250 mg PO DAILY 09/13/23 12/22/23 Unknown History Exam Height,Weight and Vital Signs: Height 5 ft 5 in Weight 68.492 kg Pertinent Lab Results Pertinent Lab Results: Laboratory Tests 09/11/23 07:05 WBC 5.6 Hgb 14.8 Hct 45.5 Plt Count 324 Sodium 139 Potassium 5.0 Chloride 104 Carbon Dioxide 28 BUN 26 H Creatinine 0.82 Narrative Narrative: EKG 09/2023 NSR @ 85 RBBB Assessment and Plan Assessment Anesthesia Assessment: Chart Reviewed Documented by User: Domi Mayo MD 12/24/23 09:46 PMFSH Past Medical History Medical History RBBB (right bundle branch block) Osteopenia Dyslipidemia Family History Family history of problems with anesthesia: No Surgical History Surgical History [place] teeth removed History of surgery on right wrist History of partial hysterectomy History of Problems with Anesthesia: No Social History Social History Housing: House Patient Tobacco Use Status: Former Tobacco user Quit Date: 2003 Tobacco use type: Cigarette Years Smoked: 15 Smoked in Last 30 Days: No e-Cigarette/Vaping Use: Never Used Second Hand Smoke Exposure: No Use of substances other than those prescribed or required for medical reasons: No Are you DNR?: No Advance Directives: No Advance Directives Information Provided: Yes service: No Current occupational status: retired Current occupation: Right hand dominate Cognitive needs: No Hearing needs: No Vision needs: No Meds Allergies Allergy/AdvReac Type Severity Reaction Status Date / Time Sulfa (Sulfonamide Allergy Severe high Verified 12/24/23 09:11 Antibiotics) fevers, rash, chills Home Medications ?Medication ?Instructions ?Recorded ?Confirmed ?Last Taken ?Type cholecalciferol (vitamin D3) 125 125 mcg PO DAILY 08/11/21 12/22/23 Unknown History mcg (5,000 unit) capsule ucccelzm-gkzl-mlvh 8 mg-folic 400 1 tab PO DAILY 08/11/21 12/22/23 Unknown History mcg-K 50 mcg-lutein 300 mcg tablet (Centrum Silver Women) cyanocobalamin (vitamin B-12) 1,000 mcg PO DAILY 01/12/22 12/22/23 Unknown History 1,000 mcg tablet estradiol 0.01% (0.1 mg/gram) 1 g vaginal 3XW 01/12/22 12/22/23 Unknown History vaginal cream collagen,hydrolysate 500 mg-biotin 1 cap PO DAILY 09/14/22 12/22/23 Unknown History 800 mcg-ascorbic acid 50 mg capsule (Collagen 1500 Plus C) psyllium husk 3.4 gram/5.4 gram 1 tbsp PO BID 03/15/23 12/22/23 Unknown History oral powder (Metamucil) magnesium 250 mg tablet 250 mg PO DAILY 09/13/23 12/22/23 Unknown History Exam Airway Mallampati Class: II TM Dist: >3cm Neck ROM: Full Heart: rrr Lungs: cta Assessment and Plan Assessment Anesthesia Assessment: Anesthesia Plan Discussed Final Anesthetic Review Family History of Problems with Anesthesia: No History of Problems with Anesthesia: No NPO: Yes ASA Class: II Final Preanesthetic Review: No Changes in Pt Med Stat, Meds/Allgs Chart Reviewed, Consent Obtained/Reviewed and Anes Risks/Benef Reviewed Patient Risk: Low Procedure Risk: Intermediate Anesthetic Plan Anesthetic Plan: GA and Regional Block Disposition: Standard PACU
[2023-12-24] VITALS (7 sets, daily range): BP systolic 100–126; BP diastolic 42–76; PULSE 75–87; RESP 14–16; TEMP 36.4–36.6; O2SAT 95–98; BMI 21.7
[2023-12-24] MEDS: Lactated Ringers 1,000 ML 100 ML IVCONT (09:35)
--- NOTE | 2023-12-24 12:33 | PM.OP ---
Brief Operative Note Date of Service: 12/24/23 Pre-op diagnosis: Right shoulder impingement syndrome, right shoulder acromioclavicular joint arthritis, right shoulder rotator cuff tear Post-op diagnosis: same Procedure: Right shoulder arthroscopic distal clavicle excision, right shoulder arthroscopic acromioplasty, right shoulder mini-open rotator cuff repair Implants: One suture anchor (Louise Twinfix suture anchor with #2 Ultrabraid suture) Surgeon: Abner Yi MD Anesthesia: GETA and regional Was an Wood Heel Flap Inserter used for this Procedure?: No Estimated blood loss (mL): 20 Pathology: none sent Condition: stable Disposition: PACU
--- NOTE | 2023-12-24 12:34 | P.OP_ITS ---
Operative Note Operative Note Date of Service: 12/24/23 Narrative: After the patient was identified as Laverne Linder and her right shoulder was initialed by myself the patient was brought to the holding area where a right shoulder interscalene regional block was performed by the anesthesiologist in routine fashion. The patient was then brought to the operating room where general anesthesia was induced by the anesthesiologist in routine fashion. The patient was given 2 g of IV Ancef preoperatively for infection prophylaxis. Examination under anesthesia of the patient's right shoulder showed full passive range of motion of the patient's right shoulder when compared to the left. The patient was gently positioned in the beach chair position with all bony prominences well padded. The patient's right shoulder region and upper extremity were prepped and draped in sterile fashion. A formal time-out was completed. A #11 scalpel blade was used to make a posterior portal 2 cm inferior and 1 cm medial to the posterolateral corner of the acromion. Blunt trocar technique was used to enter the glenohumeral joint in routine fashion. An anterior portal was made just lateral to the coracoid process after proper positioning was confirmed using a spinal needle. Diagnostic arthroscopy showed minimal degenerative changes of the glenoid and humeral head articular surfaces. There was a full-thickness tear of the supraspinatus tendon. There was no evidence of injury to the biceps tendon or its insertion onto the glenoid. There was no inflammation of the anterior joint capsule. The arthroscope was then placed from the posterior portal into the subacromial space. A lateral portal was made 2 fingerbreadths lateral to the anterior lateral corner of the acromion. The ArthroCare Wand was used to ablate soft tissues along the undersurface of the acromion as well as to excise the coracoacromial ligament. There was a sharp spur along the undersurface of the acromion which was removed using the hooded bur. The arthroscope was then placed into the lateral portal and the acromioplasty was completed with the bur in the posterior portal using the posterior aspect of the acromion as a cutting block. The ArthroCare Wand was then brought in through the anterior portal and was used to ablate soft tissues along the acromioclavicular joint and distal clavicle. The posterior and superior ligamentous structures were left intact. A distal clavicle excision of 8 mm was performed using the hooded bur. Any remaining bursal tissue was removed using the arthroscopic shaver. The subacromial space was irrigated and then drained. All arthroscopic instruments were removed. Sterile gloves were changed and the shoulder was once again prepped with Betadine. A #15 scalpel blade was used to extend the lateral portal to the lateral edge of the acromion. The subacromial tissues were dissected using electrocautery down to the superficial deltoid fascia. The trocar split in the anterior raphe of the deltoid was then extended to the lateral edge of the acromion using elect rocautery and curved Barron scissors. Any remaining bursal tissue was removed using curved Barron scissors. Subacromial and subdeltoid adhesions were bluntly dissected. The undersurface of the acromion was palpated and it was smooth. A #2 Ethibond tag suture was placed into the supraspinatus tendon. The tendon was easily mobilized to its insertion point on the glenoid. The wound was irrigated with copious amounts of normal saline solution. One suture anchor was placed into the greater tuberosity in routine fashion. The rotator cuff repair was then performed using horizontal mattress sutures under minimal tension with the patient's elbow at their side. Following the repair the shoulder was taken through a full range of motion. The repair was stable. The wound was irrigated with copious amounts of normal saline solution. The superficial and deep deltoid fascia were closed with #1 Vicryl xifvlw-mx-ajekv interrupted suture. The wound was once again irrigated. The subcutaneous tissues were closed with 2-0 Vicryl interrupted suture. The skin was closed with 3-0 Prolene subcuticular suture and Steri-Strips. The anterior and posterior portals were closed with 3-0 nylon interrupted suture. Dry sterile dressing was placed over all incisions. The patient's right upper extremity was placed into a sling. The patient was awoken and extubated in the operating room. The patient was transferred to the recovery room in stable condition.
[2023-12-24] MEDS: cefTRIAXone sodium 1 GM in 0.9 % Sodium Chloride 50 ML IV (12:45)
== END 2023-12-24 13:45 | disposition home or self-care (01) ==
PROVIDERS: PCP Nurse Practitioner Family; Visit Provider Orthopaedic Surgery
PROC: (CPT 29805; principal; 2023-12-24 11:00)
DX: M75.101 Unspecified rotator cuff tear or rupture of right shoulder, not specified as traumatic (principal); M75.41 Impingement syndrome of right shoulder; M19.019 Primary osteoarthritis, unspecified shoulder; M85.80 Other specified disorders of bone density and structure, unspecified site; I45.10 Unspecified right bundle-branch block; E78.5 Hyperlipidemia, unspecified; Z79.899 Other long term (current) drug therapy; Z88.2 Allergy status to sulfonamides; Z98.890 Other specified postprocedural states; Z87.891 Personal history of nicotine dependence
CPT/HCPCS: 23412; 29824; 29826; C1713; J0131; J0171; J0665; J0690; J0696; J1100; J2250; J2405; J2704; J2795; J3010

== ENCOUNTER → 2023-12-24 08:55 | Outpatient (BNV) | payer MEDICARE, OTHER, SELFPAY | PROVIDERS: PCP Nurse Practitioner Family; Visit Provider Orthopaedic Surgery | DX: M75.121 Complete rotator cuff tear or rupture of right shoulder, not specified as traumatic (principal); M75.41 Impingement syndrome of right shoulder; M19.011 Primary osteoarthritis, right shoulder | CPT/HCPCS: 23412; 29824 ==

== ENCOUNTER 2024-01-06 14:34 | Outpatient (AMB) | payer MEDICARE, OTHER, SELFPAY ==
--- NOTE | 2024-01-06 14:39 | A.OFFVIS_ITS ---
Vital Signs 01/06/24 14:40 Height 5 ft 6 in Weight 135 lb BMI 21.8 Intake Visit Reasons: PO RT Shoulder 12/24/23 DR Intake Note: Laverne a 68 year old female who presents today for a post operative right shoulder on 12/24/23. Patient reports she is doing well, states her arm feels tired at times. Finds relief with Aleve. Allergies Sulfa (Sulfonamide Antibiotics) Allergy (Severe, Verified 01/06/24 15:31) high fevers, rash, chills Medication List - Last Reconciled 01/06/24 by Russell Gilmore PA-C alendronate 70 mg PO QWEEK 90 days atorvastatin 10 mg PO DAILY cholecalciferol (vitamin D3) 125 mcg PO DAILY sqlecbjh-qxlwdc-erxrlwoj acid 500 mg-800 mcg- 50 mg (Collagen 1500 Plus C) 1 cap PO DAILY cyanocobalamin (vitamin B-12) 1,000 mcg PO DAILY estradiol 0.01%(0.1mg/gram) 1 g vaginal 3XW magnesium 250 mg PO DAILY njyzasau-qfy-kmgn-FA-vit K-lut 8 mg iron-400 mcg-50 mcg (Centrum Silver Women) 1 tab PO DAILY oxycodone-acetaminophen 5-325 mg (Percocet) 2 tabs PO Q4H PRN 1 week psyllium husk (Metamucil) 1 tbsp PO BID HPI HPI PO RT Shoulder 12/24/23 DR: Details: 68-year-old female who returns to the office today for post-op right shoulder , 12/24/[address] Yi. She states she has occasional weakness and fatigue in her shoulder however she is doing well otherwise. She finds relief with Aleve. She has no other concerns today. [facility] Medical History RBBB (right bundle branch block) Osteopenia Dyslipidemia Surgical History [place] teeth removed History of surgery on right wrist History of partial hysterectomy Social History Housing: House Patient Tobacco Use Status: Former Tobacco user Tobacco use type: Cigarette Years Smoked: 15 e-Cigarette/Vaping Use: Never Used Second Hand Smoke Exposure: No service: No Current occupational status: retired Current occupation: Right hand dominate Cognitive needs: No Hearing needs: No Vision needs: No Review of Systems Const All systems reviewed & are unremarkable except as noted in HPI and below Physical Exam Vital Signs: BMI result Body Mass Index 21.8 Extrem Other: Right shoulder: Incision clean, dry and intact. No erythema or drainage. NVI. Results Reviewed Results Reviewed: Brief Operative Note Date of Service: 12/24/23 Pre-op diagnosis: Right shoulder impingement syndrome, right shoulder acromioclavicular joint arthritis, right shoulder rotator cuff tear Post-op diagnosis: same Procedure: Right shoulder arthroscopic distal clavicle excision, right shoulder arthroscopic acromioplasty, right shoulder mini-open rotator cuff repair Implants: One suture anchor (Dolores Twinfix suture anchor with #2 Ultrabraid suture) Surgeon: Abner Yi MD Assessment & Plan Assessment & Plan (1) Right shoulder pain: Code(s): M25.511 - Pain in right shoulder Category: Medical Plan Sutures removed today, steri strips applied. She was offered physical therapy to work on ROM and periscapular stabilization however she declined stating she can do it on her own at home with assistance of her . She will see me back in [address] Yi, sooner if needed. Patient Instructions: Scribed for Russell Gilmore PA-C, by Danie Platt medical care manager, on 01/06/2024 at 2:45 PM EST.? I, Russell Gilmore PA-C, have personally reviewed and agree with the information entered by the scribe. Coding Level of Care Code Global (01939) Diagnoses Right shoulder pain M25.511
[2024-01-06 14:40] VITALS: BMI 21.8
== END 2024-01-06 19:11 | disposition home or self-care (01) ==
PROVIDERS: PCP Nurse Practitioner Family; Visit Provider Physician Assistant
DX: M25.511 Pain in right shoulder (principal)
CPT/HCPCS: 99024

== ENCOUNTER → 2024-01-06 14:34 | Outpatient (BNVA) | payer MEDICARE, OTHER, SELFPAY | PROVIDERS: PCP Nurse Practitioner Family; Visit Provider Physician Assistant | DX: M25.511 Pain in right shoulder (principal) | CPT/HCPCS: 99212 ==

== ENCOUNTER 2024-02-03 14:59 | Outpatient (AMB) | payer MEDICARE, OTHER, SELFPAY ==
--- NOTE | 2024-02-03 15:01 | A.OFFVIS_ITS ---
Vital Signs 02/03/24 15:02 Height 5 ft 6 in Weight 129 lb BMI 20.8 Intake Visit Reasons: PO-4wk f/u RT Shoulder 12/24/23 Intake Note: Mrs. Linder presents with complaints of mild intermittent discomfort in her right shoulder after undergoing right shoulder rotator cuff repair surgery on 12/24/2023. She has no longer taking narcotics for discomfort. She denies any f katharine or chills. She continues with her home passive range of motion exercises. Allergies Sulfa (Sulfonamide Antibiotics) Allergy (Severe, Verified 02/03/24 15:07) high fevers, rash, chills Medication List - Last Reconciled 02/04/24 by Abner Yi MD alendronate 70 mg PO QWEEK 90 days atorvastatin 10 mg PO DAILY cholecalciferol (vitamin D3) 125 mcg PO DAILY hnnvduag-tvizhy-hsemqulk acid 500 mg-800 mcg- 50 mg (Collagen 1500 Plus C) 1 cap PO DAILY cyanocobalamin (vitamin B-12) 1,000 mcg PO DAILY estradiol 0.01%(0.1mg/gram) 1 g vaginal 3XW magnesium 250 mg PO DAILY yryxtbjt-nol-mbho-FA-vit K-lut 8 mg iron-400 mcg-50 mcg (Centrum Silver Women) 1 tab PO DAILY oxycodone-acetaminophen 5-325 mg (Percocet) 2 tabs PO Q4H PRN 1 week psyllium husk (Metamucil) 1 tbsp PO BID PFSH Medical History RBBB (right bundle branch block) Osteopenia Dyslipidemia Surgical History [place] teeth removed History of surgery on right wrist History of partial hysterectomy Social History Housing: House Patient Tobacco Use Status: Former Tobacco user Tobacco use type: Cigarette Years Smoked: 15 e-Cigarette/Vaping Use: Never Used Second Hand Smoke Exposure: No service: No Current occupational status: retired Current occupation: Right hand dominate Cognitive needs: No Hearing needs: No Vision needs: No Physical Exam Vital Signs: BMI result Body Mass Index 20.8 Extrem Other: Right shoulder examination shows that the surgical incisions are well healed, no erythema, almost full passive range of motion when compared to her left shoulder, no discomfort with resisted internal or external rotation Assessment & Plan Assessment & Plan (1) Right shoulder pain: Code(s): M25.511 - Pain in right shoulder Category: Medical Plan Mrs. Linder continues to do well after undergoing right shoulder rotator cuff repair surgery on 12/24/2023. She will continue with her passive range of motion exercises for now. She will hold off on active lifting until she is 8 weeks out from surgery. She will contact me prior to her follow-up appointment in 6 weeks should any questions or concerns arise. Feel free to call me at any time should questions regarding her orthopedic management arise. Coding Level of Care Code Global (54338) Diagnoses Right shoulder pain M25.511
[2024-02-03 15:02] VITALS: BMI 20.8
== END 2024-02-03 15:38 | disposition home or self-care (01) ==
PROVIDERS: PCP Nurse Practitioner Family; Visit Provider Orthopaedic Surgery
DX: M25.511 Pain in right shoulder (principal)
CPT/HCPCS: 99024

== ENCOUNTER → 2024-02-03 14:59 | Outpatient (BNVA) | payer MEDICARE, OTHER, SELFPAY | PROVIDERS: PCP Nurse Practitioner Family; Visit Provider Orthopaedic Surgery | DX: M25.511 Pain in right shoulder (principal); Z98.890 Other specified postprocedural states | CPT/HCPCS: 99212 ==

== ENCOUNTER 2024-03-06 06:55 | Outpatient (REF) | payer MEDICARE, OTHER, SELFPAY ==
[2024-03-06 10:11] LABS: MANUAL DIFF FLAG NO
[2024-03-06 10:22] LABS: Basophils Percent Auto 0.7 % (0-2); Eosinophils Absolute Auto 0.3 X10*3/uL (0.0-0.4); Eosinophils Percent Auto 5.5 % (0-4); Hematocrit 44.5 % (37.0-47.0); Imm Gran Abs Auto 0.01 X10*3/uL (0.00-0.03); Imm Gran Pct Auto 0.2 % (0.0-0.4); Lymphocytes Absolute Auto 2.2 X10*3/uL (1.2-4.9); Lymphocytes Percent Auto 36.8 % (20-40); Mean Corpuscular HGB Conc 31.5 g/dl (31.0-35.0); Mean Corpuscular Hemoglobin 26.6 pg (27.0-33.0); Mean Corpuscular Volume 84.6 fL (80.0-98.0); Mean Platelet Volume 10.7 fL (9.4-12.3); Monocytes Absolute Auto 0.5 X10*3/uL (0.1-1.2); Neutrophils Absolute Auto 2.9 x10*3/uL (2.0-8.3); Neutrophils Percent Auto 47.8 % (45-73); Platelet Count 267 X10*3/uL (160-400); Red Blood Count 5.26 X10*6/uL (4.20-5.50); Red Cell Distribution Width 13.7 % (11.0-16.0)
[2024-03-06 10:24] LABS: Appearance Urine Clear; Color Urine Yellow; Glucose Urine UA Negative (Negative); Leukocyte Esterase Urine Negative (Negative); Nitrite Urine Negative (Negative); PH 6.5 (5.0-9.0); Specific Gravity - Urine 1.015 (1.005-1.025); Urine Blood Negative (Negative); Urine Ketones Negative (Negative); Urine Protein Negative (Neg-Trace)
[2024-03-06 10:43] LABS: Alanine Aminotransferase 22 U/L (0-31); Albumin Level 4.1 g/dL (3.5-5.0); Alkaline Phosphatase 73 U/L (39-117); Anion Gap 12 (12-20); Aspartate Amino Transferase 23 U/L (5-31); Bilirubin Total 0.4 mg/dL (0.0-1.0); Blood Urea Nitrogen 18 mg/dL (9-16); Calcium 9.9 mg/dL (8.4-10.2); Carbon Dioxide 29 mmol/L (22-29); Chloride 105 mmol/L (96-108); Cholesterol 156 mg/dL (<200); Estimated Glomerular Filt Rate > 60; Glucose Fasting 91 mg/dL (60-99); HDL Cholesterol 45 mg/dL (>40); LDL Cholesterol Calculated 87 mg/dL (<100); Potassium 4.1 mmol/L (3.3-5.1); Sodium 142 mmol/L (135-145); Total Protein 7.5 g/dL (6.5-8.0); Triglycerides 121 mg/dL (<150)
[2024-03-06 11:00] LABS: TSH reflex Free T4 2.76 uIU/mL (0.32-4.0)
[2024-03-06 11:11] LABS: Folate 14.7 ng/mL (> or = 4.0); Vitamin B12 812 pg/mL (200-900)
== END 2024-03-06 06:56 | disposition home or self-care (01) ==
LOC: HO.HMGCLDS 06:55
PROVIDERS: PCP Nurse Practitioner Family; Visit Provider Nurse Practitioner Family
DX: E53.8 Deficiency of other specified B group vitamins (principal); E78.5 Hyperlipidemia, unspecified; M85.80 Other specified disorders of bone density and structure, unspecified site
CPT/HCPCS: 36415; 80053; 80061; 81003; 82306; 82607; 82746; 84443; 85025

== ENCOUNTER 2024-03-13 08:34 | Outpatient (AMB) | payer MEDICARE, OTHER, SELFPAY ==
--- NOTE | 2024-03-13 08:45 | A.OFFPC_ITS ---
Vital Signs 03/13/24 08:47 Height 5 ft 6 in Weight 129 lb BMI 20.8 BP 120/82 Blood Pressure Location Lt brachial Position Sitting Pulse 83 Pulse Source Pulse Oximeter Pulse Oximetry (%) 98 Oxygen Delivery Method Room Air Intake Visit Reasons: 6 month follow up Intake Note: Patient here to follow up after shoulder surgery, pt would also like to talk about FBS results. Allergies Sulfa (Sulfonamide Antibiotics) Allergy (Severe, Verified 03/13/24 09:31) high fevers, rash, chills Medication List - Last Reconciled 03/13/24 by PHANI Westbrook-CAROLINA alendronate 70 mg PO QWEEK 90 days atorvastatin 10 mg PO DAILY cholecalciferol (vitamin D3) 125 mcg PO DAILY ysvxcsjx-owhfla-hnqowspw acid 500 mg-800 mcg- 50 mg (Collagen 1500 Plus C) 1 cap PO DAILY estradiol 0.01%(0.1mg/gram) 1 g vaginal 3XW magnesium 250 mg PO DAILY zwywvyly-wyt-fewb-FA-vit K-lut 8 mg iron-400 mcg-50 mcg (Centrum Silver Women) 1 tab PO DAILY psyllium husk (Metamucil) 1 tbsp PO BID Tobacco use date assessed: 09/13/23 Fall risk assessment: No Falls in past year Last assessed Fall Risk: 03/13/24 Dental Screening Dental Screen Date: 09/13/23 HPI 6 month follow up HPI Details Pt is following up with ortho due to right shoulder pain. She has a hx of right rotator cuff repair on 12/23. Pt reports doing well. She is stretching regularly at home, encouraged her to continue this. Dyslipidemia: Pt is on atorvastatin 10mg. Denies chest pain, shortness of breath, and dizziness. PFSH Medical History RBBB (right bundle branch block) Osteopenia Dyslipidemia Surgical History Hx of repair of right rotator cuff [place] teeth removed History of surgery on right wrist History of partial hysterectomy Social History Housing: House Patient Tobacco Use Status: Former Tobacco user Tobacco use type: Cigarette Years Smoked: 15 e-Cigarette/Vaping Use: Never Used Second Hand Smoke Exposure: No service: No Current occupational status: retired Current occupation: Right hand dominate Cognitive needs: No Hearing needs: No Vision needs: No Questionnaire PHQ-9 Over the last 2 weeks, how often have you been bothered by any of the following problems? 1. Little interest or pleasure in doing things: not at all 2. Feeling down, depressed, or hopeless: not at all 3. Trouble falling or staying asleep, or sleeping too much: not at all 4. Feeling tired or having little energy: not at all 5. Poor appetite or overeating: not at all 6. Feeling bad about yourself - or that you are a failure or have let yourself or your family down: not at all 7. Trouble concentrating on things, such as reading the newspaper or watching television: not at all 8. Moving or speaking so slowly that other people could have noticed. Or the opposite - being so fidgety or restless that you have been moving around a lot more than usual: not at all 9. Thoughts that you would be better off or of hurting yourself in some way: not at all Total score: 0 Depression Screening Interpretation: Negative Depression Screening Done: Yes [id number] - PHQ-9 Billing: Yes Source: Developed by Drs. Musa Javed, Amalia Vaughan, Dipak Richey and colleagues, with an educational yudith from [employer]. Thrive Questionnaire Date Thrive assessed: 03/06/24 I am a: Patient What is your living situation today?: I have a steady place to live Within the past 12 months, did the food you bought not last and you didn't have the money to get more?: Never true Within the past 12 months, did you worry whether your food would run out before you got money to buy more?: Never true Do you have trouble paying for medicines?: No Do you have trouble getting transportation to medical appointments?: No Do you have trouble paying your heating and electricity bill?: No Do you have trouble taking care of your child, family member or friend?: No Do you have trouble with day-to-day activities such as bathing, preparing meals, shopping, managing finances, etc.?: No Are you currently unemployed and looking for a job?: No Are you interested in more education?: No Please select the resources that you would like help with: Housing/Jail Currently or been in a relationship where the following occur: No concerns reported THRIVE Score: 0 AUDIT C Alcohol Use Questionnaire (AUDIT-C) 1. How often do you have a drink containing alcohol?: Never Total Score: 0 NEL-7 AMB Questionnaire NEL-7 Date NEL - 7 assessed: 09/13/23 Feeling nervous, anxious, or on edge: 0 = Not at all Not being able to stop or control worryin = Not at all Worrying too much about different things: 0 = Not at all Trouble relaxin = Not at all Being so restless that it is hard to sit still: 0 = Not at all Becoming easily annoyed or irritable: 0 = Not at all Feeling afraid as if something awful might happen: 0 = Not at all Total NEL-7 score (0-4 normal; 5-9 mild; 10-14 moderate; 15-21 severe): 0 Source: Developed by Drs. Musa Javed, Amalia Vaughan, Dipak Rcihey and colleagues, with an educational yudith from [employer]. NEL-7 Assessment Billing NEL-7 Assessment Tool: NEL-7 Assessment 45530 Review of Systems Const Reports as per HPI Physical exam (Primary Care) Vital Signs: Last Vital Signs Pulse 83 03/13/24 08:47 BP 120/82 03/13/24 08:47 Pulse Ox 98 03/13/24 08:47 Oxygen Delivery Method Room Air 03/13/24 08:47 BMI result Body Mass Index 20.8 Tobacco/Smoking Status: Tobacco use Status Tobacco use date assessed 09/13/23 03/13/24 08:47 Patient Tobacco Use Status Former Tobacco user 03/13/24 08:47 Tobacco use type Cigarette 03/13/24 08:47 e-Cigarette/Vaping Use Never Used 03/13/24 08:47 PHQ-9: PHQ-9 Score PHQ-9: Total score 0 03/13/24 11:20 Depression Screening Interpretation: Negative Thrive Assessment: Date of Thrive Assessment Date Thrive assessed 03/06/24 03/13/24 08:47 Currently or been in a relationship where the following occur: No concerns reported Const General: cooperative Orientation/consciousness: patient oriented x3 Resp Effort & Inspection: normal respiratory effort Auscultation: clear to auscultation bilaterally Cardio Rate: regular rate Rhythm: regular rhythm Heart sounds: S1 normal heart sound present and S2 normal heart sound present Neuro General: patient oriented x3 Extrem Other: raise RUE almost at 90 degrees to body Psych Appearance: grossly normal Mental Status: mental status grossly normal Speech and movement: Normal speech and movement present Affect: normal affect Attitude: cooperative Thought process: Normal thought process present Thought content: Normal thought content present Insight: Good insight present (Psych) Judgement: Good judgement present (Psych) Assessment and Plan Assessment & Plan (1) Hx of repair of right rotator cuff: Code(s): Z98.890 - Other specified postprocedural states Plan: Continue home stretching routine (2) Dyslipidemia: Code(s): E78.5 - Hyperlipidemia, unspecified Plan: Continue statin Plan The patient agreed to the use of a medical supervisor for this encounter. Scribed for NAREN Sharp by Radha Martino medical supervisor, on 03/13/2024 at 09:20 EST. Medications: Refilled atorvastatin 10 mg PO DAILY 90 tabs 4RF alendronate 70 mg PO QWEEK 13 tabs 1RF 90 days Coding Level of Care Code Est Pt Level 3 (75496) Diagnoses Hx of repair of right rotator cuff Z98.890 Dyslipidemia E78.5 Additional Codes NEL-7 Assessment Billing - NEL-7 Assessment Tool: NEL-7 Assessment [id number] ([id number])
[2024-03-13 08:47] VITALS: BP 120/82; PULSE 83; O2SAT 98; BMI 20.8
== END 2024-03-13 10:18 | disposition home or self-care (01) ==
PROVIDERS: PCP Nurse Practitioner Family; Visit Provider Nurse Practitioner Family
DX: E78.5 Hyperlipidemia, unspecified (principal); Z98.890 Other specified postprocedural states
CPT/HCPCS: 99213

== ENCOUNTER 2024-03-15 08:18 | Outpatient (AMB) | payer MEDICARE, OTHER, SELFPAY ==
--- NOTE | 2024-03-15 08:21 | A.OFFVIS_ITS ---
Intake Visit Reasons: PO- RT Shoulder 12/24/23 Intake Note: Laverne is a 68 year old female who presents to the office today for a follow up RT Shoulder 12/24/23. Pt states she is making improvements everyday and states her ROM is getting better each day. Allergies Sulfa (Sulfonamide Antibiotics) Allergy (Severe, Verified 03/15/24 08:21) high fevers, rash, chills Medication List - Last Reconciled 03/15/24 by Abner Yi MD alendronate 70 mg PO QWEEK 90 days atorvastatin 10 mg PO DAILY cholecalciferol (vitamin D3) 125 mcg PO DAILY rrxiidpm-zqpail-dxzgrvgc acid 500 mg-800 mcg- 50 mg (Collagen 1500 Plus C) 1 cap PO DAILY estradiol 0.01%(0.1mg/gram) 1 g vaginal 3XW magnesium 250 mg PO DAILY xbutzuhy-msc-zbxe-FA-vit K-lut 8 mg iron-400 mcg-50 mcg (Centrum Silver Women) 1 tab PO DAILY psyllium husk (Metamucil) 1 tbsp PO BID PFSH Medical History RBBB (right bundle branch block) Osteopenia Dyslipidemia Surgical History Hx of repair of right rotator cuff [place] teeth removed History of surgery on right wrist History of partial hysterectomy Social History Housing: House Patient Tobacco Use Status: Former Tobacco user Tobacco use type: Cigarette Years Smoked: 15 e-Cigarette/Vaping Use: Never Used Second Hand Smoke Exposure: No service: No Current occupational status: retired Current occupation: Right hand dominate Cognitive needs: No Hearing needs: No Vision needs: No Physical Exam Const Other: Well-nourished well-developed very friendly female awake alert and oriented x3 in no acute distress Extrem Other: Right shoulder examination shows almost full range of motion when compared to her left shoulder, no discomfort with resisted internal and external rotation, minimal discomfort with resisted forward flexion Assessment & Plan Assessment & Plan (1) Right shoulder pain: Code(s): M25.511 - Pain in right shoulder Category: Medical Plan Mrs. Linder continues to do well after undergoing right shoulder rotator cuff repair surgery on 12/24/2023. She will continue with her home exercise program. The do's and don'ts of lifting were discussed at length with the patient. She will contact me prior to her follow-up appointment in 3 months should any questions or concerns arise. Feel free to call me at any time should questions regarding her orthopedic management arise. Coding Level of Care Code Global (12807) Diagnoses Right shoulder pain M25.511
== END 2024-03-15 08:44 | disposition home or self-care (01) ==
PROVIDERS: PCP Nurse Practitioner Family; Visit Provider Orthopaedic Surgery
DX: M25.511 Pain in right shoulder (principal)
CPT/HCPCS: 99024

== ENCOUNTER → 2024-03-15 08:18 | Outpatient (BNVA) | payer MEDICARE, OTHER, SELFPAY | PROVIDERS: PCP Nurse Practitioner Family; Visit Provider Orthopaedic Surgery | DX: M25.511 Pain in right shoulder (principal) | CPT/HCPCS: 99212 ==

== ENCOUNTER 2024-04-13 11:00 | Outpatient (AMB) | payer MEDICARE, OTHER, SELFPAY ==
[2024-04-13 11:03] VITALS: BP 102/64; PULSE 77; TEMP 36.8; O2SAT 97; BMI 20.7
--- NOTE | 2024-04-13 11:03 | AM.OFFWIN_ITS ---
Intake Vital Signs 04/13/24 11:03 Height 5 ft 6 in Weight 128 lb BMI 20.7 BP 102/64 Blood Pressure Location Lt brachial Position Sitting Pulse 77 Pulse Source Pulse Oximeter Temp 98.3 F Temp Source Oral Pulse Oximetry (%) 97 Oxygen Delivery Method Room Air Intake Visit Reasons: EP bee Sting Intake Note: pt c/o bee sting RT forearm. Happened 2 days ago. Red, swelling, warm to touch Patient Tobacco Use Status: Former Tobacco user Allergies Sulfa (Sulfonamide Antibiotics) Allergy (Severe, Verified 04/13/24 11:06) high fevers, rash, chills Do you need a note to return to daycare/school/sports/work: No HPI HPI Comments History of Present Illness Details Patient is a 68-year-old female complaining of a bee sting on her right forearm 2 days ago. She states it started out as a small red area but has since expanded the entire length of her forearm. She states it is warm and itchy. She tried taking Benadryl with no relief in her symptoms or the redness. [facility] Medical History RBBB (right bundle branch block) Osteopenia Dyslipidemia Surgical History Hx of repair of right rotator cuff [place] teeth removed History of surgery on right wrist History of partial hysterectomy Social History Housing: House Patient Tobacco Use Status: Former Tobacco user Tobacco use type: Cigarette Years Smoked: 15 e-Cigarette/Vaping Use: Never Used Second Hand Smoke Exposure: No service: No Current occupational status: retired Current occupation: Right hand dominate Cognitive needs: No Hearing needs: No Vision needs: No Review of Systems Const All systems reviewed & are unremarkable except as noted in HPI and below Physical Exam Vital Signs: Last Vital Signs Temp 98.3 F 04/13/24 11:03 Pulse 77 04/13/24 11:03 BP 102/64 04/13/24 11:03 Pulse Ox 97 04/13/24 11:03 Oxygen Delivery Method Room Air 04/13/24 11:03 BMI result Body Mass Index 20.7 Const General: cooperative, healthy appearing, comfortable, no acute distress and well developed Orientation/consciousness: patient oriented x3 Limitations: no limitations HEENT Head: Yes normal to inspection Neck Neck: Yes normal visual inspection and Yes supple Neuro General: patient oriented x3 Extrem Other: Right upper extremity, volar side of the right forearm has erythema and warmth from the base of the wrist to the antecubital fossa. No edema, no lesions, no ecchymosis or weeping noted. Normal appearance of the hand was full range of motion of the wrist and fingers. Neurovascularly intact on the fingers and hand and wrist. Assessment & Plan Assessment & Plan (1) Cellulitis: Code(s): L03.90 - Cellulitis, unspecified Qualifiers: Site of cellulitis: extremity Site of cellulitis of extremity: upper extremity Laterality: right Qualified Code(s): L03.113 - Cellulitis of right upper limb Plan: sent abx to pharmacy Plan see above Medications: New cefuroxime axetil 500 mg PO Q12H 10 tabs 0RF hydroxyzine HCl 10 mg PO QID PRN 7 tabs 0RF itching Coding Level of Care Code Est Pt Level 3 (84206) Diagnoses Cellulitis of right upper extremity L03.113 Site of cellulitis: extremity Site of cellulitis of extremity: upper extremity Laterality: right
== END 2024-04-13 12:36 | disposition home or self-care (01) ==
PROVIDERS: PCP Nurse Practitioner Family; Visit Provider Physician Assistant
DX: L03.113 Cellulitis of right upper limb (principal)
CPT/HCPCS: 99213

== ENCOUNTER 2024-07-11 08:19 | Outpatient (AMB) | payer MEDICARE, OTHER, SELFPAY ==
[2024-07-11 08:22] VITALS: BMI 20.7
--- NOTE | 2024-07-11 08:22 | A.OFFVIS_ITS ---
Vital Signs 07/11/24 08:22 Height 5 ft 6 in Weight 128 lb BMI 20.7 Intake Visit Reasons: OV- RT Shoulder 12/24/23 Intake Note: Laverne is a 68 year old female who presents to the office today for a follow up status post right Shoulder rotator cuff repair surgery performed on 12/24/2023. Patient continues to do home exercises. Denies any concerns today. She reports mild discomfort in her shoulder. She denies any fevers chills. She does not take for discomfort. Allergies Sulfa (Sulfonamide Antibiotics) Allergy (Severe, Verified 07/11/24 08:26) high fevers, rash, chills Medication List - Last Reconciled 07/11/24 by Abner Yi MD alendronate 70 mg PO QWEEK 90 days atorvastatin 10 mg PO DAILY cholecalciferol (vitamin D3) 125 mcg PO DAILY uftldkrd-ycnyjv-lftmizsi acid 500 mg-800 mcg- 50 mg (Collagen 1500 Plus C) 1 cap PO DAILY estradiol 0.01%(0.1mg/gram) 1 g vaginal 3XW hydroxyzine HCl 10 mg PO QID PRN magnesium 250 mg PO DAILY nvagodpr-nbh-wzvy-FA-vit K-lut 8 mg iron-400 mcg-50 mcg (Centrum Silver Women) 1 tab PO DAILY psyllium husk (Metamucil) 1 tbsp PO BID PFSH Medical History RBBB (right bundle branch block) Osteopenia Dyslipidemia Surgical History Hx of repair of right rotator cuff [place] teeth removed History of surgery on right wrist History of partial hysterectomy Social History Housing: House Patient Tobacco Use Status: Former Tobacco user Tobacco use type: Cigarette Years Smoked: 15 e-Cigarette/Vaping Use: Never Used Second Hand Smoke Exposure: No service: No Current occupational status: retired Current occupation: Right hand dominate Cognitive needs: No Hearing needs: No Vision needs: No Physical Exam Vital Signs: BMI result Body Mass Index 20.7 Const Other: Well-nourished well-developed very friendly female awake alert and oriented x3 in no acute distress Extrem Other: Right shoulder examination shows full range of motion when compared to her left shoulder, 5/5 strength with supraspinatus testing, minimal discomfort with range of motion, no instability Assessment & Plan Assessment & Plan (1) Right shoulder pain: Code(s): M25.511 - Pain in right shoulder Category: Medical Plan Ms. Linder continues to do very well after undergoing right shoulder rotator cuff repair surgery on 12/24/2023. She will continue with her home exercise program. [facility] She will follow up with me on an as-needed basis should any questions or concerns arise. Feel free to call me at any time should questions regarding her orthopedic management arise. I spent 22 minutes in reviewing the patient's records and imaging studies, seeing the patient and documenting in the medical record. Coding Level of Care Code Est Pt Level 3 (71440) Complex EM visit Add On G2211 Diagnoses Right shoulder pain M25.511
== END 2024-07-11 08:52 | disposition home or self-care (01) ==
PROVIDERS: PCP Nurse Practitioner Family; Visit Provider Orthopaedic Surgery
DX: M25.511 Pain in right shoulder (principal)
CPT/HCPCS: 99213; G2211

== ENCOUNTER → 2024-07-11 08:19 | Outpatient (BNVA) | payer MEDICARE, OTHER, SELFPAY | PROVIDERS: PCP Nurse Practitioner Family; Visit Provider Orthopaedic Surgery | DX: M25.511 Pain in right shoulder (principal); Z98.890 Other specified postprocedural states | CPT/HCPCS: 99212 ==

== ENCOUNTER 2024-09-06 07:59 | Outpatient (AMB) | payer MEDICARE, OTHER, SELFPAY ==
--- OUTSIDE RECORDS SUMMARY | 2024-09-06 08:04 | XMS_ITS | Clinical Summary ---
[facility] Organization [facility] Address [address] [place] [address] Care Team Providers Care Shop Manager Name Role Phone Unavailable Primary Care Provider Unavailabl e Social History Tobacco Use Types Packs/Day Years Used Date Smoking Tobacco: Never Assessed Sex and Gender Information Value Date Recorded Sex Assigned at Not on file Gender Identity Not on file Sexual Orientation Not on file Plan of Treatment Health Maintenance Due Date Last Done Comments Breast Cancer Screening 1955 DTaP,Tdap,and Td Vaccines (1 - Tdap) 1976 Zoster Vaccines (1 of 2) 2007 Colorectal Cancer Screening: Colonoscopy 07/08/2022 Depression Screening 07/08/2022 Hepatitis C Screening 07/08/2022 Osteoporosis Screening (Bone Density Screening) 07/08/2022 Social Influencers of Health Screening 07/08/2022 Falls Risk Assessment 2022 Pneumococcal Vaccine: 65+ Ye ars (1 of 1 - PCV) 2022 COVID-19 Vaccine ( - 2023-2 5 season) 2024 Influenza Vaccine (#1) 2024 RSV Immunization Patients 60 + Years Old (1 - 1-dose 75+ series) 2032 HIB Vaccines Aged Out No longer eligi ble based on patient's age to complete this topic HPV Vaccines Aged Out No longer eligi ble based on patient's age to complete this topic Hepatitis A Vaccines Aged Out No long er eligible based on patient's age to complete this topic Hepatitis B Vaccines Aged Out No long er eligible based on patient's age to complete this topic IPV Vaccines Aged Out No longer eligi ble based on patient's age to complete this topic MMR Vaccines Aged Out No longer eligi ble based on patient's age to complete this topic Meningococcal ACWY Vaccine Aged Out N o longer eligible based on patient's age to complete this topic RSV Immunization Patients Un david 20 months Aged Out No longer eligible b ased on patient's age to complete this topic Varicella Vaccines Aged Out No longer eligible based on patient's age to complete this topic
[2024-09-06 08:09] VITALS: BP 110/62; PULSE 85; O2SAT 96; BMI 19.7
--- NOTE | 2024-09-06 08:09 | AM.OFFVISMDC ---
Intake Vital Signs 09/06/24 08:09 Height 5 ft 6 in Weight 122 lb BMI 19.7 BP 110/62 Blood Pressure Location Lt brachial Position Sitting Pulse 85 Pulse Source Pulse Oximeter Pulse Oximetry (%) 96 Intake Visit Reasons: AWV Allergies Sulfa (Sulfonamide Antibiotics) Allergy (Severe, Verified 09/06/24 08:09) high fevers, rash, chills Do you need a note to return to daycare/school/sports/work: No HPI AWV HPI Details AWV: PPP in scan pile, CCC in scan pile. referred last year for a colon screen, pt could not make it, referral resubmitted. NOTE: mammos done at [facility], missing most recent mammo, though pt reports she goes yearly. [facility] Medical History RBBB (right bundle branch block) Osteopenia Dyslipidemia Surgical History Hx of repair of right rotator cuff Roland teeth removed History of surgery on right wrist History of partial hysterectomy Social History Housing: House Patient Tobacco Use Status: Former Tobacco user Tobacco use type: Cigarette Years Smoked: 15 e-Cigarette/Vaping Use: Never Used Second Hand Smoke Exposure: No service: No Current occupational status: retired Current occupation: Right hand dominate Cognitive needs: No Hearing needs: No Vision needs: No Questionnaire Medicare Wellness Checkup [age] What gender do you identify with?: female During the past 4 weeks, how much have you been bothered by emotional problems such as feeling anxious, depressed, irritable, sad or downhearted, and blue?: not at all During the past 4 weeks, has your physical & emotional health limited your social activities with family, friends, neighbors, or groups?: not at all During the past 4 weeks, how much bodily pain have you generally had?: no pain During the past 4 weeks, was someone available to help you if you needed & wanted help?: yes, as much as I wanted During the past 4 weeks, what was the hardest physical activity you could do for at least 2 minutes?: heavy Can you get to places out of walking distance without help? (For eg., can you travel alone on buses, taxis or drive your car?): Yes Can you go shopping for groceries or clothes without someone's help?: Yes Can you prepare your own meals?: Yes Can you do your housework without help?: Yes Because of any health problems, do you need the help of another person with your personal care needs such as eating, bathing, dressing or getting around the house?: No Can you handle your own money without help?: Yes During the past 4 weeks, how would you rate your health in general?: excellent During the past 4 weeks how have things been going for you?: very well; could hardly better Are you having difficulties driving your car?: no Do you always fasten your seat belt when you are in a car?: yes, usually During past 4 weeks, have you been bothered by the following: never: Falling or dizzy when standing up, Sexual problems?, Trouble eating well?, Teeth or denture problems?, Problems using the telephone? and Tiredness or fatigue? Have you fallen 2 or more times in the past year?: Yes Are you afraid of falling?: No Are you a smoker?: no During the past 4 weeks, how many drinks of wine, beer, or other alcoholic beverages did you have?: no alcohol at all Do you exercise for about 20 minutes 3 or more times a week?: yes, most of the time Have you been given information to help with the following?: no: Hazards in your house that might hurt you? and no: Keeping track of your medications? How often do you have trouble taking medicines the way you have been told to take them?: I always take medicine as prescribed How confident are you that you can control & manage most of your health problems?: very confident What is your race?: White Mini Mental State Exam (MMSE) Orientation What is the (year) (season) (date) (day) (month)?: year, season, date, day and month Where are we (state) (county) (town or city) (hospital) (floor)?: state, county, town or city, hospital/clinic and floor Registration Name of 3 unrelated objects clearly and slowly, then ask patient to repeat all 3 of them. (1st repeat determines score. Make sure they can repeat all three): object 1, object 2 and object 3 Attention & Calculation (CHOOSE ONE) Spell WORLD backwards (DLROW): 5 letters Recall Ask patient to repeat the 3 items from question #3.: object 1, object 2 and object 3 Language Show patient a wristwatch & ask what it is. Repeat for pencil.: watch and pencil Ask the patient to repeat the phrase 'No ifs, ands, or buts' after you.: correct Ask the patient to 'take a piece of paper with their right hand' 'fold paper in half' 'place paper on floor': take paper in right hand, fold paper in half and place paper on floor Print the sentence 'CLOSE YOUR EYES' on a piece. If patient actually closes eyes then score.: followed written direction Give patient a blank piece of paper & ask to write a sentence. Score if it contains a noun & verb.: sentence contains subject and verb Ask patient to copy figure of intersecting pentagons exactly. Score if all 10 angles & 2 intersects are included.: all 10 angles present & 2 are intersected Score Score: 30 Activity of Daily Living Bathing - sponge bath, tub bath or shower: receives no assistance (gets in/out by self, if usual bathing means Dressing - getting clothes from closets & drawers, including inner/outer garments & fasteners.: gets clothes & gets completely dressed without help Toileting - going to the 'toilet room' for urine/bowel elimination & cleaning self/arranging clothes: goes to toilet room, cleans self, arranges clothes without help Transfer: moves in & out of bed and chair without help (may use support object) Continence: controls urination/bowel movements completely by self Feeding: feeds self without help Total Score: 0 Information obtained from: patient Using telephone: independent Traveling: independent Shopping: independent Preparing meals: independent Housework: independent Taking medicine: independent Managing money: independent PHQ-9 Over the last 2 weeks, how often have you been bothered by any of the following problems? 1. Little interest or pleasure in doing things: not at all 2. Feeling down, depressed, or hopeless: not at all 3. Trouble falling or staying asleep, or sleeping too much: not at all 4. Feeling tired or having little energy: not at all 5. Poor appetite or overeating: not at all 6. Feeling bad about yourself - or that you are a failure or have let yourself or your family down: not at all 7. Trouble concentrating on things, such as reading the newspaper or watching television: several days 8. Moving or speaking so slowly that other people could have noticed. Or the opposite - being so fidgety or restless that you have been moving around a lot more than usual: not at all 9. Thoughts that you would be better off or of hurting yourself in some way: not at all Total score: 1 Depression Screening Interpretation: Negative Depression Screening Done: Yes 05430 - PHQ-9 Billing: Yes Source: Developed by Drs. Musa Javed, Amalia Vaughan, Dipak Richey and colleagues, with an educational yudith from [employer]. Physical Exam Vital Signs: Last Vital Signs Pulse 85 09/06/24 08:09 BP 110/62 09/06/24 08:09 Pulse Ox 96 09/06/24 08:09 BMI result Body Mass Index 19.7 Neuro Other: able to stand from sitting position, able to tandem walk without diff. neg rhomberg, passed whisper test Immunizations pneumoc 20-lee conj-dip cr(PF) 0.5 mL IM syringe Performing Provider: NAREN Westbrook Performing Location: [facility] [place] [facility] Administered by: Memo Estrella CMA on 09/06/24 08:40 Dose Route Admin Location Dispensed Lot Number Expiration Date [facility] [address] [employer] 0.5 mL IM Left Deltoid 0.5 mL [id number] 08/28/25 0251-3216-34 [facility] Given Date VIS Provided VIS Publication Date 09/06/24 Single Vaccine 21 Eligibility Eligibility Date Funding Source Not [facility] [employer] Eligible 09/06/24 Private Assessment & Plan Assessment & Plan (1) Osteopenia: Code(s): M85.80 - Other specified disorders of bone density and structure, unspecified site (2) Encounter for annual wellness visit (AWV) in Medicare patient: Code(s): Z00.00 - Encounter for general adult medical examination without abnormal findings Plan . Orders: Orders XR DEXA axial skeleton 7 Months M85.80 - Other specified disorders of bone density and structure, unspecified site Quality Reporting (2019) Depression/Bipolar (159/160/161/177) PHQ-9: Total score: 1 Coding Level of Care Code Medicare First (G0438) Diagnoses Osteopenia M85.80 Encounter for annual wellness visit (AWV) in Medicare patient Z00.00 CPT Codes Advance Care Planning - Time spent: 1-15 minutes, on File ([id number]) Additional Codes PHQ-9 - 74837 - PHQ-9 Billing: Yes ([id number]) Advance Care Planning Forms completed: Health Care Proxy (form given to pt), MOLST (done, in scan pile) and Living will (dn,according top pt) Time spent: 1-15 minutes, on File Actual minutes spent: 10
== END 2024-09-06 08:42 | disposition home or self-care (01) ==
PROVIDERS: PCP Nurse Practitioner Family; Visit Provider Nurse Practitioner Family
DX: Z00.00 Encounter for general adult medical examination without abnormal findings (principal); M85.80 Other specified disorders of bone density and structure, unspecified site; Z23 Encounter for immunization

== ENCOUNTER → 2024-09-06 08:00 | Outpatient (BNVA) | payer MEDICARE, OTHER, SELFPAY | PROVIDERS: PCP Nurse Practitioner Family; Visit Provider Nurse Practitioner Family | DX: Z00.00 Encounter for general adult medical examination without abnormal findings (principal); M85.80 Other specified disorders of bone density and structure, unspecified site; Z23 Encounter for immunization | CPT/HCPCS: 90471; 90677; 96127 ==

== ENCOUNTER 2025-03-27 08:09 | Outpatient (REF) | payer MEDICARE, OTHER, SELFPAY ==
--- NOTE | ~2025-03-27 | MM_ITS ---
EXAMINATION: DXA BONE DENSITY AXIAL HISTORY: M85.80 - Other specified disorders of bone density and structure, unspecified... TECHNIQUE: [employer] Dual energy absorptiometry (DEXA) of the lumbar spine, total left hip, and femoral neck was performed. COMPARISON: Comparison is made with the prior examination dated 03/26/2023. FINDINGS: The bone mineral density of the lumbar spine is 0.936 g/cm2, corresponding to a T-score of -2.0, and a Z-score of -0.1. This is indicative of osteopenia. This represents a BMD change of 7.7% compared to the prior exam. This is statistically significant. The bone mineral density of the left total hip is 0.732 g/cm2, corresponding to a T-score of -2.2, and a Z-score of -0.6. This is indicative of osteopenia. This represents a BMD change of -4.4% compared to the prior exam. This is statistically significant. The bone mineral density of the left femoral neck is 0.719 g/cm2, corresponding to a T-score of -2.3, and a Z-score of -0.5. This is indicative of osteopenia. This represents a BMD change of -4.4% compared to the prior exam. MM/XR DEXA axial skeleton IMPRESSION: Based on bone mineral density, and according to World Health Organization (WHO) criteria, the diagnosis is consistent with osteopenia. Statistically, 68% of repeat scans fall within 1 SD (+/- 0.010 g/cm2 for AP spine L1-L4) and 1 SD (+/- 0.012 g/cm2 for femur total) FRAX is a trademark of the [employer], a World Health Organization (WHO) Collaborating Center. Electronically signed by: Musa Araya MD 03/27/2025 08:43 AM EDT
== END 2025-03-27 08:10 | disposition home or self-care (01) ==
LOC: HO.MAMMO 08:09
PROVIDERS: PCP Nurse Practitioner Family; Visit Provider Nurse Practitioner Family
DX: Z13.820 Encounter for screening for osteoporosis (principal); Z78.0 Asymptomatic menopausal state; M85.80 Other specified disorders of bone density and structure, unspecified site; E55.9 Vitamin D deficiency, unspecified
CPT/HCPCS: 77080

== ENCOUNTER → 2025-03-27 08:15 | Outpatient (BNV) | payer MEDICARE, OTHER, SELFPAY | PROVIDERS: PCP Nurse Practitioner Family; Visit Provider Radiology Diagnostic Radiology | DX: E28.39 Other primary ovarian failure (principal) | CPT/HCPCS: 77080 ==

== ENCOUNTER 2025-07-24 08:21 | Outpatient (AMB) | payer MEDICARE, OTHER, SELFPAY ==
--- NOTE | 2025-07-24 08:39 | MHC.OFFVIS ---
Vital Signs 07/24/25 08:46 Height 5 ft 6 in Weight 121 lb BMI 19.5 BP 112/52 L Blood Pressure Location Rt brachial Position Sitting Pulse 88 Pulse Source Pulse Oximeter Pulse Oximetry (%) 94 Oxygen Delivery Method Room Air Intake Visit Reasons: colon screening Intake Note: New pt for colo screening. Last colo over 10 years ago via [facility]. Unremarkable findings. CC: Pt denies any GI sx or concerns at this time. Geophysical Data Technician Required: No Accompanied by: Self / Same As Patient Allergies Sulfa (Sulfonamide Antibiotics) Allergy (Severe, Verified 09/06/24 08:09) high fevers, rash, chills HPI HPI colon screening: Details: 70 year old? female with past medical history dyslipidemia, osteopenia is here today for pre colonoscopy screening.? Patient was sent to us by her PCP.? Patient had a colonoscopy over 10 years ago at [facility]..? Patient denies any gastrointestinal symptoms in the past or at present.? Denies any personal or family history of gastrointestinal disease, colon polyps, or CRC.? Denies history of difficulty with sedation or anesthesia in the past.? Negative for history of sleep apnea.? Denies any history of cardiac, renal, pulmonary, or hepatic disease.?? No history of infectious? diseases like hepatitis A, B, C, HIV or tuberculosis.? Patient is not on any anticoagulation PFSH Medical History RBBB (right bundle branch block) Osteopenia Dyslipidemia Surgical History Hx of colonoscopy Hx of repair of right rotator cuff Jemison teeth removed History of surgery on right wrist History of partial hysterectomy Social History Housing: House Patient Tobacco Use Status: Former Tobacco user Tobacco use type: Cigarette Years Smoked: 15 e-Cigarette/Vaping Use: Never Used Second Hand Smoke Exposure: No service: No Current occupational status: retired Current occupation: Right hand dominate Cognitive needs: No Hearing needs: No Vision needs: No Review of Systems Const Denies weight gain and Denies weight loss ENT Reports no additional complaints, Denies dysphagia and Denies odynophagia Card Reports no additional complaints Resp Reports no additional complaints GI Denies abdominal pain, Denies belching, Denies melena, Denies bloating, Denies change in bowel habits, Denies dysphagia, Denies excessive flatus, Denies dyspepsia, Denies heartburn, Denies diarrhea, Denies loose stools, Denies nausea, Denies odynophagia and Denies vomiting Musc Reports no additional complaints Neuro Reports no additional complaints Psych Reports no additional complaints Endo Reports no additional complaints Physical Exam Vital Signs: BMI result Body Mass Index 19.5 Const General: healthy appearing, no acute distress and well developed Nutritional Appearance: well nourished Orientation/consciousness: patient oriented x3 Resp Effort & Inspection: normal respiratory effort, able to speak in complete sentences, no tracheal deviation and symmetric chest movement Auscultation: clear to auscultation bilaterally Cardio Rate: regular rate GI Inspection: Yes normal to inspection and No distended Palpation (GI): Soft to palpation, not firm, nontender and No hepatosplenomegaly present Auscultation: normal bowel sounds General: Yes no CVA tenderness Back/Spine/Pelvis Back: no CVA tenderness Skin General skin exam: elasticity normal, turgor normal and dry skin Neuro General: patient oriented x3 Psych Appearance: grossly normal Mental Status: mental status grossly normal Assessment & Plan Assessment & Plan (1) Screening for colon cancer: Code(s): Z12.11 - Encounter for screening for malignant neoplasm of colon Category: Medical Plan Patient denies any GI, cardiac or respiratory symptoms.? Denies any issues with anesthesia in the past.? Denies any history of sleep apnea.? No history infectious diseases in the past or present.? Not on any anticoagulation therapy.? No family or personal history of colon cancer or polyps.? Patient denies melena, hematochezia, unintentional weight loss or ribbon like stools.? Discussed at length the pre-procedure,? prep, diet & medications as well as what to expect prior, during and after the procedure.?? Stressed the importance of good bowel prep.? Recommended the use of Vaseline or Calmoseptine OTC & baby wipes with bowel movements to promote comfort.? ?Patient verbalizes understanding and agrees to plan of care.? She was given the opportunity to ask questions and all questions answered.? We will see her after the procedure.? Orders: Referrals GI Procedure Notification Z12.11 - Encounter for screening for malignant neoplasm of colon Medications: New bisacodyl (Dulcolax (bisacodyl)) take 4 tabs at noon the day before your colonoscopy 20 mg (4 x 5 mg) PO ONCE 4 tabs 0RF constipation 1 day Z12.11 - Encounter for screening for malignant neoplasm of colon polyethylene glycol 3350 (Miralax) As directed by gastroenterology department at [facility] 238 grams PO ONCE 238 grams 0RF Z12.11 - Encounter for screening for malignant neoplasm of colon Coding Level of Care Code New Pt Level 3 (82393) Diagnoses Screening for colon cancer Z12.11 Time Spent (min) 40 Comment 30 minutes spent with patient and additional 10 minutes spent reviewing her records
--- OUTSIDE RECORDS SUMMARY | 2025-07-24 08:39 | XMS_ITS | Clinical Summary ---
Author Organization [facility] ity Address [address] [place] [address] Care Team Providers Care Laser Specialist Name Role Phone Unavailable Primary Care Provider Unavailabl e Social History Tobacco Use Types Packs/Day Years Used Date Smoking Tobacco: Never Assessed Comments Unknown Sex and Gender Information Value Date Recorded Sex Assigned at Not on file Legal Sex Female 2:02 PM EST Gender Identity Not on file Sexual Orientation Not on file Plan of Treatment Health Maintenance Due Date Last Done Comments Breast Cancer Screening 1955 DTaP,Tdap,and Td Vaccines (1 - Tdap) 1976 Pneumococcal Vaccine: 50+ Ye ars (1 of 1 - PCV) 2007 Zoster Vaccines (1 of 2) 2007 Depression Screening 08/09/2024 COVID-19 Vaccine (1 - 2024-2 6 season) 2025 Influenza Vaccine (#1) 2025 RSV Immunization Adult Patie nts (1 - 1-dose 75+ series) 2032 HIB [...] patient's age to complete this topic Meningococcal B Vaccine Aged Out No l onger eligible based on patient's age to complete this topic RSV Immunization Patients Un david 20 months Aged Out No longer eligible b ased on patient's age to complete this topic Varicella Vaccines Aged Out No longer eligible based on patient's age to complete this topic
[2025-07-24 08:46] VITALS: BP 112/52; PULSE 88; O2SAT 94; BMI 19.5
== END 2025-07-24 09:19 | disposition home or self-care (01) ==
LOC: HO.HGI 08:22
PROVIDERS: PCP Nurse Practitioner Family; Visit Provider Nurse Practitioner Family
DX: Z01.818 Encounter for other preprocedural examination (principal); Z12.11 Encounter for screening for malignant neoplasm of colon
CPT/HCPCS: 99024

== ENCOUNTER → 2025-07-24 08:21 | Outpatient (BNVA) | payer MEDICARE, OTHER, SELFPAY | PROVIDERS: PCP Nurse Practitioner Family; Visit Provider Nurse Practitioner Family | DX: Z01.818 Encounter for other preprocedural examination (principal) | CPT/HCPCS: 99212 ==